=== PATIENT | female | born 1930 | race Caucasian/White ===

== ENCOUNTER 2019-07-14 10:48 | Inpatient (IN) | payer MEDICARE, BC, MEDICAID ==
[2019-07-14] MEDS ORDERED: Potassium Chloride 10 MEQ in Premix Bag 1 BAG IV ONE (12:05)
--- NOTE | 2019-07-14 12:20 | PCM.HP.2 ---
H&P History of Present Illness - General Date of Service: 07/14/19 Admit Problem/Dx: Admission Diagnosis/Problem Admission Diagnosis/Problem Vomiting Source of Information: Patient, Old Records, Provider - History of Present Illness Initial Comments - Free Text/Narative: Cecelia is an 89 yr old female who presented to [facility] today with 4 day history of abdominal pain, nausea and vomiting but no diarrhea. She has not taken her medications for 4 days. She was able to keep some toast and hot water down this morning. Denies any fevers, chills, cold symptoms, shortness of breath, chest pain, dark urine or increased frequency. No rashes or wounds. No myalgias or arthralgias. Seen by COLBY Medrano, who had labs drawn showed hypokalemia at 2.8, Creatinine elevated 1.1, baseline is 0.7(2018) BUN 67. Lipase 3175, liver functions normal. WBC 7.8, hemoglobin 14.5 Platelets 272. History of colon cancer, with chronic urinary incontinence requiring use of briefs. History cholecystectomy, appendectomy and hysterectomy. History of HTN, Vitamin B12 deficiency, Urinary incontinence, hypothyroid, Diabetes Type 2. Immunizations are up to date. Abdomen Pain Score (Numeric/FACES): 4 - Related Data Allergies/Adverse Reactions: Allergies Allergy/AdvReac Type Severity Reaction Status Date / Time celecoxib [From Celebrex] Allergy Intermediate Hives Verified 09/25/15 11:47 Home Medications: Home Meds Glimepiride [Amaryl] 4 mg PO WITHBREAKFAST 08/21/15 [History] Levothyroxine [Synthroid] 50 mcg PO ACBREAKFAST 08/21/15 [History] amLODIPine Besylate [Norvasc] 2.5 mg PO DAILY 08/21/15 [History] atorvaSTATin [Lipitor] 20 mg PO BEDTIME 08/21/15 [History] Cyanocobalamin (Vitamin B-12) [Vitamin B-12] 1,000 mcg PO DAILY 07/14/19 [ History] metFORMIN HCl [Metformin HCl] 500 mg PO BIDMEALS 07/14/19 [History] Past Medical History - Past Health History Medical/Surgical History: Denies Medical/Surgical History HEENT History: Reports: Cataract, Impaired Vision Cardiovascular History: Reports: High Cholesterol, Hypertension Respiratory History: Reports: None Gastrointestinal History: Reports: Cholelithiasis, Irritable Bowel Syndrome Genitourinary History: Reports: Urinary Incontinence INFORMATION SYSTEMS CONSULTANT History: Reports: Other OB/BYN History: III PARA III Musculoskeletal History: Reports: Arthritis Other Musculoskeletal History: RELATES RIGHT TOTAL HIP, ET HAS PROBLEMS WITH PAIN OF LEFT KNEE Neurological History: Reports: None Psychiatric History: Reports: None Endocrine/Metabolic History: Reports: Diabetes, Type II Hematologic History: Reports: None Immunologic History: Reports: None Oncologic (Cancer) History: Reports: Colon Dermatologic History: Reports: None - Infectious Disease History Infectious Disease History: Reports: Chicken Pox, Measles - Past Surgical History HEENT Surgical History: Reports: Cataract Surgery, Oral Surgery, Tonsillectomy GI Surgical History: Reports: Cholecystectomy, Other (See Below) (Colectomy) Female Surgical History: Reports: Breast Biopsy, Hysterectomy, Salpingo- Oophorectomy, Other (See Below) (Bladder sling) Musculoskeletal Surgical History: Reports: Hip Replacement Social & Family History - Tobacco Use Smoking Status *Q: Never Smoker - Alcohol Use Alcohol Use History: No H&P Review of Systems - Review of Systems: Review Of Systems: Comprehensive ROS is negative, except as noted in HPI. Exam - Exam Exam: See Below - Vital Signs Vital Signs: Last Vital Signs Temp 97.9 F 07/14/19 11:13 Pulse 98 07/14/19 11:13 Resp 16 07/14/19 11:13 BP 118/66 07/14/19 11:13 Pulse Ox 97 07/14/19 11:13 Weight: 112 lb 6 oz - Exam General: Alert, Oriented, Cooperative. No: Mild Distress HEENT: PERRLA, Conjunctiva Clear, EOMI, Nares Patent, Normal Nasal Septum, Posterior Pharynx Clear, TMs Clear, Other (Dry tacky mucus membranes) Neck: Supple, Trachea Midline. No: Lymphadenopathy Lungs: Clear to Auscultation, Normal Respiratory Effort Cardiovascular: Regular Rate, Regular Rhythm GI/Abdominal Exam: Normal Bowel Sounds, Soft, No Distention, Tender (LUQ, guarding but no rebound or rigidity) (Female) Exam: Deferred Rectal (Female) Exam: Deferred Extremities: No Pedal Edema Skin: Warm, Dry, Intact, Other (Dry lips) - Patient Data Lab Results Last 24 hrs: see labs on clinic visit in [facility] Sepsis Event Note - Focused Exam Vital Signs: Vital Signs Temp Pulse Resp BP Pulse Ox 07/14/19 11:13 97.9 F 98 16 118/66 97 Date Exam was Performed: 07/14/19 Time Exam was Performed: 12:12 - Problem List (1) Nausea & vomiting SNOMED Code(s): 07468862 ICD Code: R11.2 - NAUSEA WITH VOMITING, UNSPECIFIED Status: Acute Current Visit: Yes (2) Hypokalemia SNOMED Code(s): 59921723 ICD Code: E87.6 - HYPOKALEMIA Status: Acute Current Visit: Yes (3) Pancreatitis SNOMED Code(s): 07337326 ICD Code: K85.90 - ACUTE PANCREATITIS WITHOUT NECROSIS OR INFECTION, UNSP Status: Acute Current Visit: Yes Problem Details: lipase 3175, normal LFTs & WBCs Qualifiers: Chronicity: acute (4) Hypertension SNOMED Code(s): 42173851 ICD Code: I10 - ESSENTIAL (PRIMARY) HYPERTENSION Status: Chronic Current Visit: Yes (5) Diabetes type 2, controlled SNOMED Code(s): 62098379, 355592505 ICD Code: E11.9 - TYPE 2 DIABETES MELLITUS WITHOUT COMPLICATIONS Status: Chronic Current Visit: Yes Qualifiers: Diabetes mellitus jail insulin use: without jail use Diabetes mellitus complication status: without complication Qualified Code(s): E11.9 - Type 2 diabetes mellitus without complications (6) Vitamin B12 deficiency SNOMED Code(s): 866209473 ICD Code: E53.8 - DEFICIENCY OF OTHER SPECIFIED B GROUP VITAMINS Status: Chronic Current Visit: Yes (7) Urinary incontinence SNOMED Code(s): 949678711 ICD Code: R32 - UNSPECIFIED URINARY INCONTINENCE Status: Chronic Current Visit: Yes (8) Hypothyroid SNOMED Code(s): 54727435 ICD Code: E03.9 - HYPOTHYROIDISM, UNSPECIFIED Status: Chronic Current Visit: Yes (9) History of colon cancer SNOMED Code(s): 794556805 ICD Code: Z85.038 - PERSONAL HISTORY OF MALIGNANT NEOPLASM OF LARGE INTESTINE Status: Chronic Current Visit: Yes Problem List Initiated/Reviewed/Updated: Yes Orders Last 24hrs: Active Orders 24 hr Category Date Time Status Patient Status [ADT] Routine ADT 07/14/19 11:51 Active Antiembolic Devices [RC] .Routine Care 07/14/19 11:38 Active Blood Glucose Check, Bedside [RC] BIDMEALS Care 07/14/19 11:50 Active Central Line Assessment [RC] QSHIFT Care 07/14/19 12:01 Active Oxygen Therapy [RC] PRN Care 07/14/19 11:51 Active Up ad Eddie [RC] ASDIRECTED Care 07/14/19 11:50 Active VTE/DVT Education [RC] Per Unit Routine Care 07/14/19 11:51 Active Vital Signs [RC] Q4H Care 07/14/19 11:51 Active Clear Liquid Diet [DIET] Diet 07/14/19 Lunch Active BASIC METABOLIC PANEL,BMP [CHEM] Routine Lab 07/15/19 06:00 Ordered MAGNESIUM [CHEM] Routine Lab 07/14/19 10:03 Received UA W/MICROSCOPIC [URIN] Routine Lab 07/14/19 11:50 Ordered Acetaminophen [Tylenol] Med 07/14/19 11:50 Active 650 mg PO Q4H PRN Cyanocobalamin (Vitamin B12) [Vitamin B12] Med 07/15/19 09:00 Active 1,000 mcg PO DAILY Glimepiride Med 07/15/19 08:00 Active 4 mg PO WITHBREAKFAST Levothyroxine [Synthroid] Med 07/15/19 06:00 Active 50 mcg PO DAILY@0600 Ondansetron [Zofran ODT] Med 07/14/19 11:50 Active 4 mg PO Q6H PRN Potassium Chloride [KCl 10 MEQ in Water 100 ML] 10 meq Med 07/14/19 13:00 Active Premix Bag 1 bag IV Q1H Sodium Chloride 0.9% [Normal Saline] 1,000 ml Med 07/14/19 12:00 Active IV ASDIRECTED amLODIPine [Norvasc] Med 07/15/19 09:00 Active 2.5 mg PO DAILY atorvaSTATin [Lipitor] Med 07/14/19 21:00 Active 20 mg PO BEDTIME metFORMIN [Glucophage] Med 07/15/19 09:00 Active 500 mg PO BIDMEALS Antiembolic Hose [OM.PC] Routine Oth 07/14/19 11:38 Ordered Resuscitation Status Routine Resus Stat 07/14/19 11:50 Ordered Medication Orders Acetaminophen (Tylenol) 650 mg PO Q4H PRN PRN Reason: Pain (Mild 1-3)/fever Amlodipine Besylate (Norvasc) 2.5 mg PO DAILY [facility] Atorvastatin Calcium (Lipitor) 20 mg PO BEDTIME [facility] Cyanocobalamin (Vitamin B12) 1,000 mcg PO DAILY JOHNNIE Glimepiride (Glimepiride) 4 mg PO WITHBREAKFAST [facility] Sodium Chloride (Normal Saline) 1,000 mls @ 100 mls/hr IV ASDIRECTED [facility] Potassium Chloride 10 meq/ (Premix) 100 mls @ 100 mls/hr IV Q1H JOHNNIE Stop: 07/14/19 15:59 Levothyroxine Sodium (Synthroid) 50 mcg PO DAILY@0600 [facility] Metformin HCl (Glucophage) 500 mg PO BIDMEALS [facility] Ondansetron HCl (Zofran Odt) 4 mg PO Q6H PRN PRN Reason: nausea, able to take PO Assessment/Plan Comment:: 1. Direct admission from clinic for IV fluids, potassium replacement and monitoring. 2. Port accessible, IVF at 100 ml/hr, KCL 30 mEq over 3 hours, repeat labs tomorrow. 3. Repeat lipase tomorrow, clear liquid diet, will advance as tolerated. 4. Accuchecks BID, Regular diet. 5. DVT: TEDs BLE. Ambulation ad eddie. 6. CODE STATUS: DNR/DNI - Mortality Measure Prognosis:: Poor
[2019-07-14] MEDS: Sodium Chloride 0.9% 1,000 ML IV SCH (12:31)
[2019-07-14] MEDS: Potassium Chloride 10 MEQ in Premix Bag 1 BAG IV SCH ×3 (12:32→15:14)
[2019-07-14] MEDS ORDERED: Potassium Chloride 10 MEQ in Premix Bag 3 BAG IV SCH (13:00)
[2019-07-14] MEDS: Acetaminophen 325 MG Tab PO PRN (16:23)
[2019-07-14] MEDS: Ondansetron 4 MG Tab.DIS PO PRN (18:52)
[2019-07-14] MEDS: atorvaSTATin 20 MG Tab PO SCH (20:44)
[2019-07-15] MEDS: Sodium Chloride 0.9% 1,000 ML IV SCH ×2 (01:39→11:33)
[2019-07-15] MEDS: Acetaminophen 325 MG Tab PO PRN (05:29)
[2019-07-15] MEDS: Levothyroxine 50 MCG Tab PO SCH (05:30)
[2019-07-15] MEDS: Glimepiride 4 MG Tab PO SCH (10:00)
[2019-07-15] MEDS: metFORMIN 500 MG Tab PO SCH (10:00)
[2019-07-15] MEDS: amLODIPine 2.5 MG Tab PO SCH (10:01)
[2019-07-15] MEDS: Cyanocobalamin (Vitamin B12) 1,000 MCG Tab PO SCH (10:01)
[2019-07-15] MEDS ORDERED: Diatrizoate Meglumine/Diatrizoate Sodium 37% 30 ML Bottle PO ONE (13:05)
[2019-07-15] MEDS ORDERED: Iopamidol 755 Mg/ML 100 ML Bottle IV ONE (13:05)
[2019-07-15] MEDS ORDERED: cefTRIAXone 1 GM in Sodium Chloride 0.9% 50 ML IV SCH (15:00)
--- NOTE | 2019-07-15 15:09 | PCM.PN ---
- General Info Date of Service: 07/15/19 Admission Dx/Problem (Free Text): Patient having more LUQ pain, no appetite. No vomiting since admission. No fevers or chills. - Patient Data Vitals - Most Recent: Last Vital Signs Temp 98.1 F 07/15/19 11:39 Pulse 82 07/15/19 11:39 Resp 14 07/15/19 11:39 BP 141/73 H 07/15/19 11:39 Pulse Ox 97 07/15/19 11:39 Weight - Most Recent: 112 lb 6 oz I&O - Last 24 Hours: Intake & Output 07/14/19 07/15/19 07/15/19 22:59 06:59 14:59 Intake Total 1009 712 Balance 1009 712 Lab Results Last 24 Hours: Laboratory Results - last 24 hr 07/14/19 07/14/19 07/15/19 Range/Units 15:00 17:33 06:12 Sodium (135-145) mmol/L Potassium (3.5-5.3) mmol/L Chloride (100-110) mmol/L Carbon Dioxide (21-32) mmol/L BUN (7-18) mg/dL Creatinine (0.55-1.02) mg/dL Est Cr Clr Drug Dosing mL/min Estimated GFR (MDRD) (>60) BUN/Creatinine Ratio (9-20) Glucose (80-116) mg/dL POC Glucose 101 131 H (80-116) mg/dL Calcium (8.6-10.2) mg/dL Lipase (73-393) U/L Urine Color Yellow (YELLOW) Urine Appearance Cloudy (CLEAR) Urine pH 5.0 (5.0-6.5) Ur Specific Lorraine 1.020 (1.010-1.025) Urine Protein Trace (NEGATIVE) mg/dL Urine Glucose (UA) Normal (NORMAL) mg/dL Urine Ketones 15 H (NEGATIVE) mg/dL Urine Occult Blood Negative (NEGATIVE) Urine Nitrite Negative (NEGATIVE) Urine Bilirubin Small H (NEGATIVE) Urine Urobilinogen 1 H (NEGATIVE) mg/dL Ur Leukocyte Esterase Moderate H (NEGATIVE) Urine RBC 0-5 (0-5) Urine WBC 5-10 H (0-5) Ur Squamous Epith Cells Few H (NS,R,O) Urine Bacteria Many H (NS) 07/15/19 07/15/19 Range/Units 06:40 06:40 Sodium 136 (135-145) mmol/L Potassium 3.1 L (3.5-5.3) mmol/L Chloride 96 L D (100-110) mmol/L Carbon Dioxide 31 (21-32) mmol/L BUN 44 H D (7-18) mg/dL Creatinine 0.8 (0.55-1.02) mg/dL Est Cr Clr Drug Dosing 37.71 mL/min Estimated GFR (MDRD) > 60 (>60) BUN/Creatinine Ratio 55.0 H (9-20) Glucose 134 H (80-116) mg/dL POC Glucose (80-116) mg/dL Calcium 8.6 (8.6-10.2) mg/dL Lipase 4545 H (73-393) U/L Urine Color (YELLOW) Urine Appearance (CLEAR) Urine pH (5.0-6.5) Ur Specific Lorraine (1.010-1.025) Urine Protein (NEGATIVE) mg/dL Urine Glucose (UA) (NORMAL) mg/dL Urine Ketones (NEGATIVE) mg/dL Urine Occult Blood (NEGATIVE) Urine Nitrite (NEGATIVE) Urine Bilirubin (NEGATIVE) Urine Urobilinogen (NEGATIVE) mg/dL Ur Leukocyte Esterase (NEGATIVE) Urine RBC (0-5) Urine WBC (0-5) Ur Squamous Epith Cells (NS,R,O) Urine Bacteria (NS) Medhat Results Last 24 Hours: Microbiology 07/14/19 15:00 Urine Culture - Preliminary Urine, Voided Gram Negative Rods Med Orders - Current: Current Medications Acetaminophen (Tylenol) 650 mg PO Q4H PRN PRN Reason: Pain (Mild 1-3)/fever Last Admin: 07/15/19 05:29 Dose: 650 mg Amlodipine Besylate (Norvasc) 2.5 mg PO DAILY [facility] Last Admin: 07/15/19 10:01 Dose: Not Given Atorvastatin Calcium (Lipitor) 20 mg PO BEDTIME [facility] Last Admin: 07/14/19 20:44 Dose: 20 mg Cyanocobalamin (Vitamin B12) 1,000 mcg PO DAILY [facility] Last Admin: 07/15/19 10:01 Dose: Not Given Glimepiride (Glimepiride) 4 mg PO WITHBREAKFAST [facility] Last Admin: 07/15/19 10:00 Dose: Not Given Heparin Sodium (Porcine) (Heparin Lock Flush 100 Units/Ml) 500 units FLUSH ASDIRECTED PRN PRN Reason: LINE PATENCY Sodium Chloride (Normal Saline) 1,000 mls @ 100 mls/hr IV ASDIRECTED [facility] Last Admin: 07/15/19 11:33 Dose: 100 mls/hr Ceftriaxone Sodium 1 gm/ (Sodium Chloride) 50 mls @ 200 mls/hr IV Q24H [facility] Levothyroxine Sodium (Synthroid) 50 mcg PO DAILY@0600 [facility] Last Admin: 07/15/19 05:30 Dose: 50 mcg Metformin HCl (Glucophage) 500 mg PO BIDMEALS [facility] Last Admin: 07/15/19 10:00 Dose: Not Given Ondansetron HCl (Zofran Odt) 4 mg PO Q6H PRN PRN Reason: nausea, able to take PO Last Admin: 07/14/19 18:52 Dose: 4 mg Discontinued Medications Diatrizoate Meglum/Diatrizoate Sod (Gastrografin 37%) 30 ml PO . DIRECTED ONE Stop: 07/15/19 13:06 Last Admin: 07/15/19 13:20 Dose: 30 ml Potassium Chloride 10 meq/ (Premix) 100 mls @ 100 mls/hr IV ONETIME ONE Stop: 07/14/19 13:04 Last Admin: 07/14/19 12:30 Dose: Not Given Potassium Chloride 10 meq/ (Premix) 100 mls @ 100 mls/hr IV Q1H [facility] Potassium Chloride 10 meq/ (Premix) 100 mls @ 100 mls/hr IV Q1H [facility] Stop: 07/14/19 15:59 Last Admin: 07/14/19 15:14 Dose: 100 mls/hr Iopamidol (Isovue-370 (76%)) 100 ml IV . DIRECTED ONE Stop: 07/15/19 13:06 Last Admin: 07/15/19 13:20 Dose: 58 ml - Exam General: Alert, Oriented, Cooperative, No Acute Distress Lungs: Clear to Auscultation, Normal Respiratory Effort Cardiovascular: Regular Rate, Regular Rhythm GI/Abdominal Exam: Normal Bowel Sounds (also present in ventral hernia, no ecchymosis), Soft, No Distention, Guarding, Tender (LUQ, ventral hernia reducible). No: Rigid, Rebound Extremities: No Pedal Edema Sepsis Event Note - Evaluation Sepsis Screening Result: No Definite Risk - Focused Exam Vital Signs: Vital Signs Temp Pulse Resp BP Pulse Ox Pulse Ox 07/15/19 11:39 98.1 F 82 14 141/73 H 97 07/15/19 11:27 94 L 07/15/19 08:00 99.2 F 91 14 119/62 94 L 07/15/19 04:00 98.9 F 88 18 138/71 95 Date Exam was Performed: 07/15/19 Time Exam was Performed: 14:57 - Problem List & Annotations (1) Partial obstruction of small intestine SNOMED Code(s): 755160928 Code(s): K56.600 - PARTIAL INTESTINAL OBSTRUCTION, UNSPECIFIED TO CAUSE Status: Acute Current Visit: Yes (2) UTI (urinary tract infection) SNOMED Code(s): 75292862 Code(s): N39.0 - URINARY TRACT INFECTION, SITE NOT SPECIFIED Status: Acute Current Visit: Yes (3) Nausea & vomiting SNOMED Code(s): 34943177 Code(s): R11.2 - NAUSEA WITH VOMITING, UNSPECIFIED Status: Acute Current Visit: Yes (4) Hypokalemia SNOMED Code(s): 20907336 Code(s): E87.6 - HYPOKALEMIA Status: Acute Current Visit: Yes (5) Pancreatitis SNOMED Code(s): 02377687 Code(s): K85.90 - ACUTE PANCREATITIS WITHOUT NECROSIS OR INFECTION, UNSP Status: Ruled-out Current Visit: Yes Qualifiers: Chronicity: acute Annotation/Comment:: lipase 4545, normal LFTs & WBCs, will get CT abdomen & pelvis today. (6) Hypertension SNOMED Code(s): 04371633 Code(s): I10 - ESSENTIAL (PRIMARY) HYPERTENSION Status: Chronic Current Visit: Yes (7) Diabetes type 2, controlled SNOMED Code(s): 97217954, 466311225 Code(s): E11.9 - TYPE 2 DIABETES MELLITUS WITHOUT COMPLICATIONS Status: Chronic Current Visit: Yes Qualifiers: Diabetes mellitus termite inspector insulin use: without chcf use Diabetes mellitus complication status: without complication Qualified Code(s): E11.9 - Type 2 diabetes mellitus without complications (8) Vitamin B12 deficiency SNOMED Code(s): 677596793 Code(s): E53.8 - DEFICIENCY OF OTHER SPECIFIED B GROUP VITAMINS Status: Chronic Current Visit: Yes (9) Urinary incontinence SNOMED Code(s): 261707856 Code(s): R32 - UNSPECIFIED URINARY INCONTINENCE Status: Chronic Current Visit: Yes (10) Hypothyroid SNOMED Code(s): 65577018 Code(s): E03.9 - HYPOTHYROIDISM, UNSPECIFIED Status: Chronic Current Visit: Yes (11) History of colon cancer SNOMED Code(s): 958132268 Code(s): Z85.038 - PERSONAL HISTORY OF MALIGNANT NEOPLASM OF LARGE INTESTINE Status: Chronic Current Visit: Yes - Problem List Review Problem List Initiated/Reviewed/Updated: Yes - My Orders Last 24 Hours: My Active Orders 07/14/19 15:00 CULTURE URINE [RM] Routine 07/14/19 16:20 Patient Status [ADT] Routine 07/14/19 21:00 atorvaSTATin [Lipitor] 20 mg PO BEDTIME 07/15/19 06:00 Levothyroxine [Synthroid] 50 mcg PO DAILY@0600 07/15/19 08:00 Glimepiride 4 mg PO WITHBREAKFAST 07/15/19 09:00 Cyanocobalamin (Vitamin B12) [Vitamin B12] 1,000 mcg PO DAILY amLODIPine [Norvasc] 2.5 mg PO DAILY metFORMIN [Glucophage] 500 mg PO BIDMEALS 07/15/19 10:09 Abdomen Pelvis w Cont [CT] Routine 07/15/19 15:00 cefTRIAXone [Rocephin] 1 gm Sodium Chloride 0.9% [Normal Saline] 50 ml IV Q24H 07/15/19 Lunch NPO [Nothing Per Oral Diet] [DIET] 07/16/19 06:00 BASIC METABOLIC PANEL,BMP [CHEM] Routine CBC WITH AUTO DIFF [HEME] Routine LIPASE [CHEM] Routine - Plan Plan:: 1. CT abdomen/pelvis with contrast this morning, Lipase elevated to 4545. 2. Port accessible, IVF at 100 ml/hr, KCL 30 mEq over 3 hours repeat, K up to 3.1, repeat labs tomorrow. 3. Repeat lipase tomorrow, NPO with ice chips. 4. UC: >100,000 Gram negative rods, started Rocephin 1 g IV q24h. 5. DVT: TEDs BLE. Ambulation ad eddie. 6. CODE STATUS: DNR/DNI CT abdomen/pelvis: showed no pancreatitis but did show possible or partial bowel obstruction in the ventral hernia(report called by Dr Young at 1432). Discussed with patient, she is more tender over hernia now than this morning when rounded, no ecchymosis, bowel sounds present, reducible. Called Dr Stevenson, surgeon application support intern.
--- NOTE | 2019-07-15 15:33 | CT ---
INDICATION: Left upper quadrant pain. Elevated lipase. CT ABDOMEN/PELVIS WITH CONTRAST: Spiral 3.75 mm axial sections were obtained through the abdomen and pelvis with oral and IV contrast (58 mL Isovue-370 at 1.1 cc/second) injected through a port. Sagittal and coronal reconstructions were obtained 07/15/19 - no comparisons. Total exam DLP was 390.82 mGy-cm. Lower lung hernandez and pleural spaces visualized showed no acute abnormalities. The heart is normal in size. No pericardial effusion was seen. The liver appeared normal without evidence of metastatic disease. No retroperitoneal mass was seen. The pancreas, spleen, kidneys and adrenals were essentially normal with a few tiny low-density lesions in the kidneys, compatible with tiny cysts. The appendix, gallbladder, and uterus are absent compatible with surgical removal. There is evidence of a colon resection in the rectosigmoid area. In the left lower quadrant - left upper pelvis anterolaterally, there is a moderately large hernia measuring 82 x 35 mm (transverse x anterior posterior) diameter with a loop of dilated what appears to be small bowel within it. A dilated loop extends into the hernia sac and there is suggestion of a decompressed loop extending from the hernia sac more medially. This is not well defined but is suspicious for an obstructive process at the level of the hernia. Markedly dilated loops of small bowel are noted up to 4.6 cm and are numerous up to this level. Air-fluid levels are seen in these dilated loops of small bowel compatible with a mechanically obstructive process, either early or partial since there is gas and stool in the colon, which is decompressed. No evidence of free air was identified. No free fluid collections were seen. No evidence of pancreatitis was identified. Calcifications are noted in the aorta, splenic, iliac and femoral arteries. IMPRESSION: 1. 8 cm hernia with 33 mm mouth and question of obstruction of a loop of small bowel in that hernia producing a partially obstructive or early mechanical obstruction of the distal small bowel in the left lower quadrant hernia. This should be correlated clinically. 2. ASD. 3. Minimal cystic changes in the kidneys. 4. Post appendectomy, cholecystectomy, hysterectomy, oophorectomy, total hip replacement on the right. 5. Mild dextroconcave scoliosis lumbar spine. Report was called to Dr. Crews at [address] [facility]
[2019-07-15] MEDS: cefTRIAXone 1 GM Vial IVPUSH SCH (15:41)
[2019-07-15] MEDS: Potassium Chloride 10 MEQ in Premix Bag 1 BAG IV SCH ×3 (15:57→18:35)
--- NOTE | 2019-07-15 18:34 | CONS ---
DATE OF CONSULTATION: 07/15/2019 HISTORY: This 89-year-old female seen at the request of Dr. Crews for evaluation of her abdomen. She was admitted yesterday with a 4-day history of abdominal pain, nausea, and vomiting. She was found to be low potassium in the clinic and admitted. Lipase was also elevated and remains so. She has a history of many previous surgeries including cholecystectomy, appendectomy, and hysterectomy. A CT scan of the abdomen was obtained today. I have reviewed the report and the films. She does have a long-standing hernia that has been present at least for 30 years and has never been bothersome to her. There is bowel dilatation and there seems to be a transition point near the hernia. The patient has not had any emesis since yesterday and does not complain of any nausea at this point. PAST MEDICAL HISTORY: Reviewed. MEDICATIONS: Reviewed. MEDICAL ALLERGIES: Reviewed. REVIEW OF SYSTEMS: Patient denies chest pain, shortness of breath, or respiratory difficulties. Denies fever, sweats, or chills. Has not had a bowel movement since being in the hospital. She denies any abdominal pain at this time. PHYSICAL EXAMINATION: GENERAL: Reveals a pleasant elderly lady, in no acute distress. She is resting comfortably. VITALS: Were reviewed and within normal limits. ABDOMEN: Distended, soft, and nontender. She does have a palpable hernia in the left periumbilical region that is completely soft and nontender. I am able to hear bowel sounds in it, but again there is no tenderness. I do not palpate any other hernias or masses. ASSESSMENT: 1. Recent nausea and vomiting, resolved. 2. Abdominal wall hernia. PLAN: Findings reviewed with the patient, and since she is not having any symptoms from this currently, I would recommend observation. This is a chronic large-mouth hernia and she does not have any evidence of incarceration or strangulation today that would warrant surgery. I would recommend conservative measures at this point. I will follow peripherally while hospitalized. /[id number] 1824 MARY/LIN
[2019-07-15] MEDS: atorvaSTATin 20 MG Tab PO SCH (20:17)
[2019-07-16] MEDS: Sodium Chloride 0.9% 1,000 ML IV SCH (01:00)
[2019-07-16] MEDS ORDERED: 50% Dextrose in Water 50 ML Syringe ONE (05:54)
[2019-07-16] MEDS ORDERED: 50% Dextrose in Water 50 ML Syringe IVPUSH ONE (05:55)
[2019-07-16] MEDS ORDERED: Dextrose 5%-0.9% NaCl 1,000 ML IV SCH (06:00)
[2019-07-16] MEDS: Levothyroxine 50 MCG Tab PO SCH (06:36)
[2019-07-16] MEDS: Sodium Chloride 0.9% 10 ML Syringe FLUSH PRN ×2 (11:30→16:20)
[2019-07-16] MEDS: Potassium Chloride 20 MEQ Tab.ER PO SCH ×2 (11:34→20:09)
[2019-07-16] MEDS: Cyanocobalamin (Vitamin B12) 1,000 MCG Tab PO SCH (11:34)
[2019-07-16] MEDS: amLODIPine 2.5 MG Tab PO SCH (11:35)
[2019-07-16] MEDS: Glimepiride 4 MG Tab PO SCH (12:07)
--- NOTE | 2019-07-16 12:12 | PCM.PN ---
- General Info Date of Service: 07/16/19 Admission Dx/Problem (Free Text): The patient states she feels much better. She denies any abdominal pain, nausea , vomiting or fevers. She still hasn't passed any gas or have a BM. - Patient Data Vitals - Most Recent: Last Vital Signs Temp 97.4 F 07/16/19 11:35 Pulse 80 07/16/19 11:35 Resp 16 07/16/19 11:35 BP 114/62 07/16/19 11:35 Pulse Ox 97 07/16/19 11:35 Weight - Most Recent: 112 lb 6 oz I&O - Last 24 Hours: Intake & Output 07/15/19 07/16/19 07/16/19 22:59 06:59 14:59 Intake Total 740 923 560 Output Total 600 Balance 140 923 560 Lab Results Last 24 Hours: Laboratory Results - last 24 hr 07/15/19 07/16/19 07/16/19 Range/Units 17:16 05:49 06:29 WBC (4.5-12.0) X10-3/uL RBC (3.23-5.20) x10(6)uL Hgb (11.5-15.5) g/dL Hct (30.0-51.3) % MCV (80-96) fL MCH (27.7-33.6) pg MCHC (32.2-35.4) g/dL RDW (11.5-15.5) % Plt Count (125-369) X10(3)uL MPV (7.4-10.4) fL Add Manual Diff Neutrophils % (Manual) (46-82) % Band Neutrophils % (0-6) % Lymphocytes % (Manual) (13-37) % Monocytes % (Manual) (4-12) % Sodium (135-145) mmol/L Potassium (3.5-5.3) mmol/L Chloride (100-110) mmol/L Carbon Dioxide (21-32) mmol/L BUN (7-18) mg/dL Creatinine (0.55-1.02) mg/dL Est Cr Clr Drug Dosing mL/min Estimated GFR (MDRD) (>60) BUN/Creatinine Ratio (9-20) Glucose (80-116) mg/dL POC Glucose 90 54 L 208 H D (80-116) mg/dL Calcium (8.6-10.2) mg/dL Lipase (73-393) U/L 07/16/19 07/16/19 07/16/19 Range/Units 06:55 06:55 06:55 WBC 7.9 (4.5-12.0) X10-3/uL RBC 3.76 (3.23-5.20) x10(6)uL Hgb 12.1 (11.5-15.5) g/dL Hct 36.0 (30.0-51.3) % MCV 95.6 (80-96) fL MCH 32.2 (27.7-33.6) pg MCHC 33.7 (32.2-35.4) g/dL RDW 12.0 (11.5-15.5) % Plt Count 230 (125-369) X10(3)uL MPV 7.9 (7.4-10.4) fL Add Manual Diff Yes Neutrophils % (Manual) 88 H (46-82) % Band Neutrophils % 1 (0-6) % Lymphocytes % (Manual) 8 L (13-37) % Monocytes % (Manual) 3 L (4-12) % Sodium 138 (135-145) mmol/L Potassium 2.9 L (3.5-5.3) mmol/L Chloride 100 (100-110) mmol/L Carbon Dioxide 26 (21-32) mmol/L BUN 21 H D (7-18) mg/dL Creatinine 0.6 (0.55-1.02) mg/dL Est Cr Clr Drug Dosing 50.27 mL/min Estimated GFR (MDRD) > 60 (>60) BUN/Creatinine Ratio 35.0 H (9-20) Glucose 192 H (80-116) mg/dL POC Glucose (80-116) mg/dL Calcium 7.8 L (8.6-10.2) mg/dL Lipase 1354 H (73-393) U/L [place] Results Last 24 Hours: Microbiology 07/14/19 15:00 Urine Culture - Preliminary Urine, Voided Gram Negative Rods Med Orders - Current: Current Medications Acetaminophen (Tylenol) 650 mg PO Q4H PRN PRN Reason: Pain (Mild 1-3)/fever Last Admin: 07/15/19 05:29 Dose: 650 mg Amlodipine Besylate (Norvasc) 2.5 mg PO DAILY [facility] Last Admin: 07/16/19 11:35 Dose: 2.5 mg Atorvastatin Calcium (Lipitor) 20 mg PO BEDTIME [facility] Last Admin: 07/15/19 20:17 Dose: Not Given Ceftriaxone Sodium (Rocephin) 1 gm IVPUSH Q24H [facility] Last Admin: 07/15/19 15:41 Dose: 1 gm Cyanocobalamin (Vitamin B12) 1,000 mcg PO DAILY [facility] Last Admin: 07/16/19 11:34 Dose: 1,000 mcg Heparin Sodium (Porcine) (Heparin Lock Flush 100 Units/Ml) 500 units FLUSH ASDIRECTED PRN PRN Reason: LINE PATENCY Last Admin: 07/16/19 12:00 Dose: 500 units Levothyroxine Sodium (Synthroid) 50 mcg PO DAILY@0600 [facility] Last Admin: 07/16/19 06:36 Dose: Not Given Metformin HCl (Glucophage) 500 mg PO BIDMEALS [facility] Last Admin: 07/15/19 10:00 Dose: Not Given Ondansetron HCl (Zofran Odt) 4 mg PO Q6H PRN PRN Reason: nausea, able to take PO Last Admin: 07/14/19 18:52 Dose: 4 mg Potassium Chloride (Klor-Con M20) 20 meq PO BID [facility] Last Admin: 07/16/19 11:34 Dose: 20 meq Sodium Chloride (Saline Flush) 10 ml FLUSH ASDIRECTED PRN PRN Reason: flush med Discontinued Medications Dextrose/Water (Dextrose 50% In Water) Confirm Administered Dose 50 ml .ROUTE .STK-MED ONE Stop: 07/16/19 05:55 Last Admin: 07/16/19 06:09 Dose: Not Given Dextrose/Water (Dextrose 50% In Water) 50 ml IVPUSH ONETIME ONE Stop: 07/16/19 05:56 Last Admin: 07/16/19 05:50 Dose: 50 ml Diatrizoate Meglum/Diatrizoate Sod (Gastrografin 37%) 30 ml PO . DIRECTED ONE Stop: 07/15/19 13:06 Last Admin: 07/15/19 13:20 Dose: 30 ml Glimepiride (Glimepiride) 4 mg PO WITHBREAKFAST [facility] Last Admin: 07/16/19 12:07 Dose: Not Given Sodium Chloride (Normal Saline) 1,000 mls @ 100 mls/hr IV ASDIRECTED [facility] Last Admin: 07/16/19 01:00 Dose: 100 mls/hr Potassium Chloride 10 meq/ (Premix) 100 mls @ 100 mls/hr IV ONETIME ONE Stop: 07/14/19 13:04 Last Admin: 07/14/19 12:30 Dose: Not Given Potassium Chloride 10 meq/ (Premix) 100 mls @ 100 mls/hr IV Q1H [facility] Potassium Chloride 10 meq/ (Premix) 100 mls @ 100 mls/hr IV Q1H [facility] Stop: 07/14/19 15:59 Last Admin: 07/14/19 15:14 Dose: 100 mls/hr Potassium Chloride 10 meq/ (Premix) 100 mls @ 100 mls/hr IV Q1H [facility] Stop: 07/15/19 18:59 Last Admin: 07/15/19 18:35 Dose: 100 mls/hr Dextrose/Sodium Chloride (Dextrose 5%-Normal Saline) 1,000 mls @ 100 mls/hr IV ASDIRECTED [facility] Last Admin: 07/16/19 05:50 Dose: 100 mls/hr Iopamidol (Isovue-370 (76%)) 100 ml IV . DIRECTED ONE Stop: 07/15/19 13:06 Last Admin: 07/15/19 13:20 Dose: 58 ml - Exam General: Alert, Oriented GI/Abdominal Exam: Normal Bowel Sounds, Non-Tender, No Distention, No Mass, Hernia Sepsis Event Note - Evaluation Sepsis Screening Result: No Definite Risk - Focused Exam Vital Signs: Vital Signs Temp Pulse Resp BP BP BP Pulse Ox 07/16/19 11:35 97.4 F 80 16 121/60 114/62 97 07/16/19 09:30 98.3 F 85 18 121/60 96 07/16/19 03:40 99.8 F 87 17 123/57 L 93 L Date Exam was Performed: 07/16/19 Time Exam was Performed: 12:09 - Problem List & Annotations (1) Hypokalemia SNOMED Code(s): 70913871 Code(s): E87.6 - HYPOKALEMIA Status: Acute Current Visit: Yes (2) Nausea & vomiting SNOMED Code(s): 46065338 Code(s): R11.2 - NAUSEA WITH VOMITING, UNSPECIFIED Status: Acute Current Visit: Yes (3) Partial obstruction of small intestine SNOMED Code(s): 707248828 Code(s): K56.600 - PARTIAL INTESTINAL OBSTRUCTION, UNSPECIFIED TO CAUSE Status: Acute Current Visit: Yes (4) Diabetes type 2, controlled SNOMED Code(s): 16240009, 536186962 Code(s): E11.9 - TYPE 2 DIABETES MELLITUS WITHOUT COMPLICATIONS Status: Chronic Current Visit: Yes Qualifiers: Diabetes mellitus exterminator helper insulin use: without exterminator helper use Diabetes mellitus complication status: without complication Qualified Code(s): E11.9 - Type 2 diabetes mellitus without complications (5) Pancreatitis SNOMED Code(s): 64042506 Code(s): K85.90 - ACUTE PANCREATITIS WITHOUT NECROSIS OR INFECTION, UNSP Status: Ruled-out Current Visit: Yes Qualifiers: Chronicity: acute Annotation/Comment:: lipase 4545, normal LFTs & WBCs, will get CT abdomen & pelvis today. (6) UTI (urinary tract infection) SNOMED Code(s): 48619381 Code(s): N39.0 - URINARY TRACT INFECTION, SITE NOT SPECIFIED Status: Acute Current Visit: Yes (7) Palliative care status SNOMED Code(s): 069189961 Code(s): Z51.5 - ENCOUNTER FOR PALLIATIVE CARE Status: Acute Current Visit: Yes - Problem List Review Problem List Initiated/Reviewed/Updated: Yes - My Orders Last 24 Hours: My Active Orders 07/16/19 09:18 Ambulate [RC] ASDIRECTED Convert IV to Saline Lock [OM.PC] Routine 07/16/19 10:00 Potassium Chloride [Klor-Con M20] 20 meq PO BID 07/16/19 11:25 Sodium Chloride 0.9% [Saline Flush] 10 ml FLUSH ASDIRECTED PRN 07/16/19 Lunch Clear Liquid Diet [DIET] 07/17/19 06:00 BASIC METABOLIC PANEL,BMP [CHEM] AM - Plan Plan:: 1. Review Dr. Pettit note. 2. Ambulate 3. Start clear liquids 4. DC IV fluids and saline lock IV. 5. Stop the Amaryl until she is eating regular food. 6. Recheck amylase in a.m. 7. By mouth potassium and recheck electrolytes appear
[2019-07-16] MEDS: cefTRIAXone 1 GM Vial IVPUSH SCH (16:20)
[2019-07-16] MEDS: atorvaSTATin 20 MG Tab PO SCH (20:10)
[2019-07-17] MEDS: Levothyroxine 50 MCG Tab PO SCH (05:13)
--- NOTE | 2019-07-17 08:29 | PCM.PN ---
- General Info Date of Service: 07/17/19 Admission Dx/Problem (Free Text): Patient is doing well. She had a BM she states. She has no abdominal pain, nausea or vomiting. She is currently on full liquids and tolerating it. - Patient Data Vitals - Most Recent: Last Vital Signs Temp 98.4 F 07/17/19 04:00 Pulse 67 07/17/19 04:00 Resp 17 07/17/19 04:00 BP 130/64 07/17/19 04:00 Pulse Ox 96 07/17/19 04:00 Weight - Most Recent: 112 lb 6 oz Lab Results Last 24 Hours: Laboratory Results - last 24 hr 07/16/19 07/16/19 07/16/19 Range/Units 06:29 06:55 17:28 Neutrophils % (Manual) 88 H (46-82) % Band Neutrophils % 1 (0-6) % Lymphocytes % (Manual) 8 L (13-37) % Monocytes % (Manual) 3 L (4-12) % Sodium (135-145) mmol/L Potassium (3.5-5.3) mmol/L Chloride (100-110) mmol/L Carbon Dioxide (21-32) mmol/L BUN (7-18) mg/dL Creatinine (0.55-1.02) mg/dL Est Cr Clr Drug Dosing mL/min Estimated GFR (MDRD) (>60) BUN/Creatinine Ratio (9-20) Glucose (80-116) mg/dL POC Glucose 208 H D 192 H (80-116) mg/dL Calcium (8.6-10.2) mg/dL Lipase (73-393) U/L 07/17/19 07/17/19 07/17/19 Range/Units 05:15 06:30 06:30 Neutrophils % (Manual) (46-82) % Band Neutrophils % (0-6) % Lymphocytes % (Manual) (13-37) % Monocytes % (Manual) (4-12) % Sodium 140 (135-145) mmol/L Potassium 3.4 L (3.5-5.3) mmol/L Chloride 105 D (100-110) mmol/L Carbon Dioxide 28 (21-32) mmol/L BUN 10 D (7-18) mg/dL Creatinine 0.6 (0.55-1.02) mg/dL Est Cr Clr Drug Dosing 50.27 mL/min Estimated GFR (MDRD) > 60 (>60) BUN/Creatinine Ratio 16.7 (9-20) Glucose 138 H (80-116) mg/dL POC Glucose 145 H (80-116) mg/dL Calcium 7.8 L (8.6-10.2) mg/dL Lipase 834 H (73-393) U/L [place] Results Last 24 Hours: Microbiology 07/14/19 15:00 Urine Culture - Final Urine, Voided Escherichia Coli Med Orders - Current: Current Medications Acetaminophen (Tylenol) 650 mg PO Q4H PRN PRN Reason: Pain (Mild 1-3)/fever Last Admin: 07/15/19 05:29 Dose: 650 mg Amlodipine Besylate (Norvasc) 2.5 mg PO DAILY [facility] Last Admin: 07/16/19 11:35 Dose: 2.5 mg Atorvastatin Calcium (Lipitor) 20 mg PO BEDTIME [facility] Last Admin: 07/16/19 20:10 Dose: 20 mg Ceftriaxone Sodium (Rocephin) 1 gm IVPUSH Q24H [facility] Last Admin: 07/16/19 16:20 Dose: 1 gm Cyanocobalamin (Vitamin B12) 1,000 mcg PO DAILY [facility] Last Admin: 07/16/19 11:34 Dose: 1,000 mcg Heparin Sodium (Porcine) (Heparin Lock Flush 100 Units/Ml) 500 units FLUSH ASDIRECTED PRN PRN Reason: LINE PATENCY Last Admin: 07/16/19 16:28 Dose: 500 units Levothyroxine Sodium (Synthroid) 50 mcg PO DAILY@0600 [facility] Last Admin: 07/17/19 05:13 Dose: 50 mcg Metformin HCl (Glucophage) 500 mg PO BIDMEALS [facility] Last Admin: 07/15/19 10:00 Dose: Not Given Ondansetron HCl (Zofran Odt) 4 mg PO Q6H PRN PRN Reason: nausea, able to take PO Last Admin: 07/14/19 18:52 Dose: 4 mg Potassium Chloride (Klor-Con M20) 20 meq PO DAILY [facility] Sodium Chloride (Saline Flush) 10 ml FLUSH ASDIRECTED PRN PRN Reason: flush med Last Admin: 07/16/19 16:20 Dose: 10 ml Discontinued Medications Dextrose/Water (Dextrose 50% In Water) Confirm Administered Dose 50 ml .ROUTE .STK-MED ONE Stop: 07/16/19 05:55 Last Admin: 07/16/19 06:09 Dose: Not Given Dextrose/Water (Dextrose 50% In Water) 50 ml IVPUSH ONETIME ONE Stop: 07/16/19 05:56 Last Admin: 07/16/19 05:50 Dose: 50 ml Diatrizoate Meglum/Diatrizoate Sod (Gastrografin 37%) 30 ml PO . DIRECTED ONE Stop: 07/15/19 13:06 Last Admin: 07/15/19 13:20 Dose: 30 ml Glimepiride (Glimepiride) 4 mg PO WITHBREAKFAST [facility] Last Admin: 07/16/19 12:07 Dose: Not Given Sodium Chloride (Normal Saline) 1,000 mls @ 100 mls/hr IV ASDIRECTED [facility] Last Admin: 07/16/19 01:00 Dose: 100 mls/hr Potassium Chloride 10 meq/ (Premix) 100 mls @ 100 mls/hr IV ONETIME ONE Stop: 07/14/19 13:04 Last Admin: 07/14/19 12:30 Dose: Not Given Potassium Chloride 10 meq/ (Premix) 100 mls @ 100 mls/hr IV Q1H [facility] Potassium Chloride 10 meq/ (Premix) 100 mls @ 100 mls/hr IV Q1H [facility] Stop: 07/14/19 15:59 Last Admin: 07/14/19 15:14 Dose: 100 mls/hr Potassium Chloride 10 meq/ (Premix) 100 mls @ 100 mls/hr IV Q1H [facility] Stop: 07/15/19 18:59 Last Admin: 07/15/19 18:35 Dose: 100 mls/hr Dextrose/Sodium Chloride (Dextrose 5%-Normal Saline) 1,000 mls @ 100 mls/hr IV ASDIRECTED [facility] Last Admin: 07/16/19 05:50 Dose: 100 mls/hr Iopamidol (Isovue-370 (76%)) 100 ml IV . DIRECTED ONE Stop: 07/15/19 13:06 Last Admin: 07/15/19 13:20 Dose: 58 ml Potassium Chloride (Klor-Con M20) 20 meq PO BID [facility] Last Admin: 07/16/19 20:09 Dose: 20 meq - Exam Lungs: Normal Respiratory Effort GI/Abdominal Exam: Normal Bowel Sounds, Soft, Non-Tender, No Distention, Hernia Sepsis Event Note - Evaluation Sepsis Screening Result: No Definite Risk - Focused Exam Vital Signs: Vital Signs Temp Pulse Resp BP BP Pulse Ox 07/17/19 04:00 98.4 F 67 17 130/64 96 07/16/19 23:58 99.3 F 78 17 114/63 96 Date Exam was Performed: 07/17/19 Time Exam was Performed: 08:25 - Problem List & Annotations (1) Hypokalemia SNOMED Code(s): 55351460 Code(s): E87.6 - HYPOKALEMIA Status: Acute Current Visit: Yes (2) Nausea & vomiting SNOMED Code(s): 74650711 Code(s): R11.2 - NAUSEA WITH VOMITING, UNSPECIFIED Status: Acute Current Visit: Yes (3) Partial obstruction of small intestine SNOMED Code(s): 533038944 Code(s): K56.600 - PARTIAL INTESTINAL OBSTRUCTION, UNSPECIFIED TO CAUSE Status: Acute Current Visit: Yes (4) Diabetes type 2, controlled SNOMED Code(s): 44472742, 691954234 Code(s): E11.9 - TYPE 2 DIABETES MELLITUS WITHOUT COMPLICATIONS Status: Chronic Current Visit: Yes Qualifiers: Diabetes mellitus bed bug exterminator insulin use: without chcf use Diabetes mellitus complication status: without complication Qualified Code(s): E11.9 - Type 2 diabetes mellitus without complications (5) Pancreatitis SNOMED Code(s): 32493103 Code(s): K85.90 - ACUTE PANCREATITIS WITHOUT NECROSIS OR INFECTION, UNSP Status: Ruled-out Current Visit: Yes Qualifiers: Chronicity: acute Annotation/Comment:: lipase 4545, normal LFTs & WBCs, will get CT abdomen & pelvis today. (6) UTI (urinary tract infection) SNOMED Code(s): 34730394 Code(s): N39.0 - URINARY TRACT INFECTION, SITE NOT SPECIFIED Status: Acute Current Visit: Yes (7) Palliative care status SNOMED Code(s): 003856205 Code(s): Z51.5 - ENCOUNTER FOR PALLIATIVE CARE Status: Acute Current Visit: Yes - Problem List Review Problem List Initiated/Reviewed/Updated: Yes - My Orders Last 24 Hours: My Active Orders 07/16/19 09:18 Ambulate [RC] ASDIRECTED Convert IV to Saline Lock [OM.PC] Routine 07/16/19 11:25 Sodium Chloride 0.9% [Saline Flush] 10 ml FLUSH ASDIRECTED PRN 07/17/19 09:00 Potassium Chloride [Klor-Con M20] 20 meq PO DAILY 07/17/19 Lunch Consistent Carbohydrate Diet [DIET] - Plan Plan:: 1. Decrease potassium to 20 mg once a day. 2. Stop Rocephin and start Bactrim 1 by mouth twice a day 3. Advance to diabetic diet.
[2019-07-17] MEDS: Potassium Chloride 20 MEQ Tab.ER PO SCH (09:30)
[2019-07-17] MEDS: amLODIPine 2.5 MG Tab PO SCH (09:30)
[2019-07-17] MEDS: Cyanocobalamin (Vitamin B12) 1,000 MCG Tab PO SCH (09:31)
[2019-07-17] MEDS ORDERED: Sulfamethoxazole/Trimethoprim 800-160 MG Tab ONE (09:34)
[2019-07-17] MEDS: Sulfamethoxazole/Trimethoprim 400-80 MG Tab PO SCH ×2 (10:04→20:14)
[2019-07-17] MEDS: Acetaminophen 325 MG Tab PO PRN (14:53)
[2019-07-17] MEDS: Ondansetron 4 MG Tab.DIS PO PRN (14:53)
[2019-07-17] MEDS ORDERED: Insulin Lispro 100 Unit/ML 3 ML KwikPen SUBCUT SCH (17:30)
[2019-07-17] MEDS: metFORMIN 500 MG Tab PO SCH (18:15)
[2019-07-17] MEDS: atorvaSTATin 20 MG Tab PO SCH (20:14)
[2019-07-18] MEDS: Levothyroxine 50 MCG Tab PO SCH (05:36)
[2019-07-18] MEDS: amLODIPine 2.5 MG Tab PO SCH (08:55)
[2019-07-18] MEDS: metFORMIN 500 MG Tab PO SCH (08:55)
[2019-07-18] MEDS: Potassium Chloride 20 MEQ Tab.ER PO SCH (08:55)
[2019-07-18 08:56] VITALS: BP 127/66
[2019-07-18] MEDS: Cyanocobalamin (Vitamin B12) 1,000 MCG Tab PO SCH (08:56)
[2019-07-18] MEDS: Sulfamethoxazole/Trimethoprim 400-80 MG Tab PO SCH (09:09)
--- NOTE | 2019-07-18 09:47 | PCM.PN ---
- General Info Date of Service: 07/18/19 Admission Dx/Problem (Free Text): Patient says she's doing well today. After her lunch she had some abdominal pain. She says she passed a lot of gas and since then has been feeling well. She has normal BMs, no nausea, vomiting or abdominal pain or fevers or chills. - Patient Data Vitals - Most Recent: Last Vital Signs Temp 98.2 F 07/18/19 03:39 Pulse 78 07/18/19 03:39 Resp 18 07/18/19 03:39 BP 127/66 07/18/19 08:55 Pulse Ox 96 07/18/19 03:39 Weight - Most Recent: 112 lb 6 oz Lab Results Last 24 Hours: Laboratory Results - last 24 hr 07/17/19 07/18/19 07/18/19 Range/Units 17:34 05:38 07:00 POC Glucose 188 H 151 H (80-116) mg/dL Lipase 740 H (73-393) U/L Med Orders - Current: Current Medications Acetaminophen (Tylenol) 650 mg PO Q4H PRN PRN Reason: Pain (Mild 1-3)/fever Last Admin: 07/17/19 14:53 Dose: 650 mg Amlodipine Besylate (Norvasc) 2.5 mg PO DAILY [facility] Last Admin: 07/18/19 08:55 Dose: 2.5 mg Atorvastatin Calcium (Lipitor) 20 mg PO BEDTIME [facility] Last Admin: 07/17/19 20:14 Dose: 20 mg Cyanocobalamin (Vitamin B12) 1,000 mcg PO DAILY [facility] Last Admin: 07/18/19 08:56 Dose: 1,000 mcg Heparin Sodium (Porcine) (Heparin Lock Flush 100 Units/Ml) 500 units FLUSH ASDIRECTED PRN PRN Reason: LINE PATENCY Last Admin: 07/16/19 16:28 Dose: 500 units Levothyroxine Sodium (Synthroid) 50 mcg PO DAILY@0600 [facility] Last Admin: 07/18/19 05:36 Dose: 50 mcg Metformin HCl (Glucophage) 500 mg PO BIDMEALS [facility] Last Admin: 07/18/19 08:55 Dose: 500 mg Ondansetron HCl (Zofran Odt) 4 mg PO Q6H PRN PRN Reason: nausea, able to take PO Last Admin: 07/17/19 14:53 Dose: 4 mg Potassium Chloride (Klor-Con M20) 20 meq PO DAILY [facility] Last Admin: 07/18/19 08:55 Dose: 20 meq Sodium Chloride (Saline Flush) 10 ml FLUSH ASDIRECTED PRN PRN Reason: flush med Last Admin: 07/16/19 16:20 Dose: 10 ml Trimethoprim/Sulfamethoxazole (Septra) 1 tab PO BID [facility] Stop: 07/19/19 09:00 Last Admin: 07/18/19 09:09 Dose: 1 tab Discontinued Medications Ceftriaxone Sodium (Rocephin) 1 gm IVPUSH Q24H [facility] Last Admin: 07/16/19 16:20 Dose: 1 gm Dextrose/Water (Dextrose 50% In Water) Confirm Administered Dose 50 ml .ROUTE .STK-MED ONE Stop: 07/16/19 05:55 Last Admin: 07/16/19 06:09 Dose: Not Given Dextrose/Water (Dextrose 50% In Water) 50 ml IVPUSH ONETIME ONE Stop: 07/16/19 05:56 Last Admin: 07/16/19 05:50 Dose: 50 ml Diatrizoate Meglum/Diatrizoate Sod (Gastrografin 37%) 30 ml PO . DIRECTED ONE Stop: 07/15/19 13:06 Last Admin: 07/15/19 13:20 Dose: 30 ml Glimepiride (Glimepiride) 4 mg PO WITHBREAKFAST [facility] Last Admin: 07/16/19 12:07 Dose: Not Given Sodium Chloride (Normal Saline) 1,000 mls @ 100 mls/hr IV ASDIRECTED [facility] Last Admin: 07/16/19 01:00 Dose: 100 mls/hr Potassium Chloride 10 meq/ (Premix) 100 mls @ 100 mls/hr IV ONETIME ONE Stop: 07/14/19 13:04 Last Admin: 07/14/19 12:30 Dose: Not Given Potassium Chloride 10 meq/ (Premix) 100 mls @ 100 mls/hr IV Q1H [facility] Potassium Chloride 10 meq/ (Premix) 100 mls @ 100 mls/hr IV Q1H [facility] Stop: 07/14/19 15:59 Last Admin: 07/14/19 15:14 Dose: 100 mls/hr Potassium Chloride 10 meq/ (Premix) 100 mls @ 100 mls/hr IV Q1H [facility] Stop: 07/15/19 18:59 Last Admin: 07/15/19 18:35 Dose: 100 mls/hr Dextrose/Sodium Chloride (Dextrose 5%-Normal Saline) 1,000 mls @ 100 mls/hr IV ASDIRECTED [facility] Last Admin: 07/16/19 05:50 Dose: 100 mls/hr Iopamidol (Isovue-370 (76%)) 100 ml IV . DIRECTED ONE Stop: 07/15/19 13:06 Last Admin: 07/15/19 13:20 Dose: 58 ml Potassium Chloride (Klor-Con M20) 20 meq PO BID [facility] Last Admin: 07/16/19 20:09 Dose: 20 meq Trimethoprim/Sulfamethoxazole (Septra Ds) Confirm Administered Dose 1 tab .ROUTE .STK-MED ONE Stop: 07/17/19 09:35 Last Admin: 07/17/19 10:06 Dose: Not Given - Exam General: Alert, Oriented, Cooperative GI/Abdominal Exam: Normal Bowel Sounds, Soft, Non-Tender, No Distention, No Mass , Hernia Sepsis Event Note - Evaluation Sepsis Screening Result: No Definite Risk - Focused Exam Vital Signs: Vital Signs Temp Pulse Resp BP BP Pulse Ox 07/18/19 08:55 127/66 07/18/19 03:39 98.2 F 78 18 124/70 96 07/18/19 00:00 98.3 F 84 17 110/56 L 97 Date Exam was Performed: 07/18/19 Time Exam was Performed: 09:46 - Problem List & Annotations (1) Hypokalemia SNOMED Code(s): 01642855 Code(s): E87.6 - HYPOKALEMIA Status: Acute Current Visit: Yes (2) Nausea & vomiting SNOMED Code(s): 45436108 Code(s): R11.2 - NAUSEA WITH VOMITING, UNSPECIFIED Status: Acute Current Visit: Yes (3) Partial obstruction of small intestine SNOMED Code(s): 810180729 Code(s): K56.600 - PARTIAL INTESTINAL OBSTRUCTION, UNSPECIFIED TO CAUSE Status: Acute Current Visit: Yes (4) Diabetes type 2, controlled SNOMED Code(s): 37645852, 669999967 Code(s): E11.9 - TYPE 2 DIABETES MELLITUS WITHOUT COMPLICATIONS Status: Chronic Current Visit: Yes Qualifiers: Diabetes mellitus long chain dyeing machine operator insulin use: without long chain dyeing machine operator use Diabetes mellitus complication status: without complication Qualified Code(s): E11.9 - Type 2 diabetes mellitus without complications (5) Pancreatitis SNOMED Code(s): 73251161 Code(s): K85.90 - ACUTE PANCREATITIS WITHOUT NECROSIS OR INFECTION, UNSP Status: Ruled-out Current Visit: Yes Qualifiers: Chronicity: acute Annotation/Comment:: lipase 4545, normal LFTs & WBCs, will get CT abdomen & pelvis today. (6) UTI (urinary tract infection) SNOMED Code(s): 81441318 Code(s): N39.0 - URINARY TRACT INFECTION, SITE NOT SPECIFIED Status: Acute Current Visit: Yes (7) Palliative care status SNOMED Code(s): 873488044 Code(s): Z51.5 - ENCOUNTER FOR PALLIATIVE CARE Status: Acute Current Visit: Yes - Problem List Review Problem List Initiated/Reviewed/Updated: Yes - My Orders Last 24 Hours: My Active Orders 07/17/19 09:00 Potassium Chloride [Klor-Con M20] 20 meq PO DAILY Sulfamethoxazole/Trimethoprim [Septra] 1 tab PO BID 07/17/19 17:24 Accu Check [Blood Glucose Check, Bedside] [RC] QIDACANDBED 07/17/19 17:42 Accu Check [Blood Glucose Check, Bedside] [RC] BIDMEALS 07/17/19 Lunch Consistent Carbohydrate Diet [DIET] - Plan Plan:: 1. Discharge to home on home health.
--- NOTE | 2019-07-18 09:55 | PCM.DCSUM1 ---
Discharge Summary - Hospital Course Free Text/Narrative:: , IV fluids, nothing by mouth and morphine for pain. Patient had a CT scan that showed large hernia ventral and questionable small bowel obstruction. Her lipase was 1354. No signs of pancreatic necrotizing the CT. Dr. Pettit was consult area he felt there is nothing surgical any follow along if needed. Patient improved and with IV fluids and nothing by mouth. Eventually started some clear liquids and went to full liquids and she tolerated this. I gave her full diet and she has some abdominal pain but then pass a lot of gas and it got better and she tolerated a full diet. Her potassium was a little bit low and replaced and potassium will she was here. She should do well if she has a regular diet at home. She is a diabetic. Her blood sugars were a little low when she was on the Amaryl and I held that. She recheck with Dr. Black in 1 week with a BMP, UA and lipase. She did have a UTI. History of Rocephin and that 'll Bactrim and no treatment at home. Brief History: Cecelia is an 89 yr old female who presented to [facility] today with 4 day history of abdominal pain, nausea and vomiting but no diarrhea. She has not taken her medications for 4 days. She was able to keep some toast and hot water down this morning. Denies any fevers, chills, cold symptoms, shortness of breath, chest pain, dark urine or increased frequency. No rashes or wounds. No myalgias or arthralgias. Seen by COLBY Medrano, who had labs drawn showed hypokalemia at 2.8, Creatinine elevated 1.1, baseline is 0.7(06/29/2019) BUN 67. Lipase 3175, liver functions normal. WBC 7.8, hemoglobin 14.5 Platelets 272. History of colon cancer, with chronic urinary incontinence requiring use of briefs. History cholecystectomy, appendectomy and hysterectomy. History of HTN, Vitamin B12 deficiency, Urinary incontinence, hypothyroid, Diabetes Type 2. Immunizations are up to date. Diagnosis: Stroke: No - Discharge Data Discharge Date: 07/18/19 Discharge Disposition: Home, W Home Health Agency 06 Condition: Good - Referral to Home Health Date of Face to Face Encounter: 07/18/19 Reason for Homebound Status: Disease teaching, observation of disease, strengthening, medication management Primary Care Physician: Young Black MD Skilled Need: Home health disease teaching, observing patient's health to make sure she doesn't deteriorate, home safety - Discharge Diagnosis/Problem(s) (1) Hypokalemia SNOMED Code(s): 59756520 ICD Code: E87.6 - HYPOKALEMIA Status: Acute Current Visit: Yes (2) Nausea & vomiting SNOMED Code(s): 27007247 ICD Code: R11.2 - NAUSEA WITH VOMITING, UNSPECIFIED Status: Acute Current Visit: Yes (3) Partial obstruction of small intestine SNOMED Code(s): 198955994 ICD Code: K56.600 - PARTIAL INTESTINAL OBSTRUCTION, UNSPECIFIED TO CAUSE Status: Acute Current Visit: Yes (4) Diabetes type 2, controlled SNOMED Code(s): 93075970, 565490313 ICD Code: E11.9 - TYPE 2 DIABETES MELLITUS WITHOUT COMPLICATIONS Status: Chronic Current Visit: Yes Qualifiers: Diabetes mellitus terminal supervisor insulin use: without mcc use Diabetes mellitus complication status: without complication Qualified Code(s): E11.9 - Type 2 diabetes mellitus without complications (5) Pancreatitis SNOMED Code(s): 15685666 ICD Code: K85.90 - ACUTE PANCREATITIS WITHOUT NECROSIS OR INFECTION, UNSP Status: Ruled-out Current Visit: Yes Problem Details: lipase 4545, normal LFTs & WBCs, will get CT abdomen & pelvis today. Qualifiers: Chronicity: acute (6) UTI (urinary tract infection) SNOMED Code(s): 12650794 ICD Code: N39.0 - URINARY TRACT INFECTION, SITE NOT SPECIFIED Status: Acute Current Visit: Yes (7) Palliative care status SNOMED Code(s): 813719492 ICD Code: Z51.5 - ENCOUNTER FOR PALLIATIVE CARE Status: Acute Current Visit: Yes - Patient Summary/Data Consults: Consultations 07/15/19 16:24 Consult to Physician [CONS] Routine Consulting Provider: Nikita Pettit Courtesy Call Completed to Consulting Physician: Yes Reason for Consult: ? bowel obstruction Date Notified: 07/15/19 Time Notified: 16:25 - Patient Instructions Diet: Diabetic Diet Activity: As Tolerated Driving: May Drive Today Notify Provider of: Increased Pain, Nausea and/or Vomiting Other/Special Instructions: 1. Recheck with Dr. Black in 1 week with a BMP, lipase and UA. - Discharge Plan Home Medications: Home Meds Glimepiride [Amaryl] 4 mg PO WITHBREAKFAST 08/21/15 [History] Levothyroxine [Synthroid] 50 mcg PO ACBREAKFAST 08/21/15 [History] amLODIPine Besylate [Norvasc] 2.5 mg PO DAILY 08/21/15 [History] atorvaSTATin [Lipitor] 20 mg PO BEDTIME 08/21/15 [History] Cyanocobalamin (Vitamin B-12) [Vitamin B-12] 1,000 mcg PO DAILY 07/14/19 [ History] metFORMIN HCl [Metformin HCl] 500 mg PO BIDMEALS 07/14/19 [History] Patient Handouts: Nausea and Vomiting, Adult, [id number], Fall Prevention in Hospitals, Adult, Venous Thromboembolism Prevention - Discharge Summary/Plan Comment DC Time >30 min.: No - Patient Data Vitals - Most Recent: Last Vital Signs Temp 98.2 F 07/18/19 03:39 Pulse 78 07/18/19 03:39 Resp 18 07/18/19 03:39 BP 127/66 07/18/19 08:55 Pulse Ox 96 07/18/19 03:39 Weight - Most Recent: 112 lb 6 oz Lab Results - Last 24 hrs: Laboratory Results - last 24 hr 07/17/19 07/18/19 07/18/19 Range/Units 17:34 05:38 07:00 POC Glucose 188 H 151 H (80-116) mg/dL Lipase 740 H (73-393) U/L Med Orders - Current: Current Medications Acetaminophen (Tylenol) 650 mg PO Q4H PRN PRN Reason: Pain (Mild 1-3)/fever Last Admin: 07/17/19 14:53 Dose: 650 mg Amlodipine Besylate (Norvasc) 2.5 mg PO DAILY JOHNNIE Last Admin: 07/18/19 08:55 Dose: 2.5 mg Atorvastatin Calcium (Lipitor) 20 mg PO BEDTIME JOHNNIE Last Admin: 07/17/19 20:14 Dose: 20 mg Cyanocobalamin (Vitamin B12) 1,000 mcg PO DAILY JOHNNIE Last Admin: 07/18/19 08:56 Dose: 1,000 mcg Heparin Sodium (Porcine) (Heparin Lock Flush 100 Units/Ml) 500 units FLUSH ASDIRECTED PRN PRN Reason: LINE PATENCY Last Admin: 07/16/19 16:28 Dose: 500 units Levothyroxine Sodium (Synthroid) 50 mcg PO DAILY@0600 [facility] Last Admin: 07/18/19 05:36 Dose: 50 mcg Metformin HCl (Glucophage) 500 mg PO BIDMEALS [facility] Last Admin: 07/18/19 08:55 Dose: 500 mg Ondansetron HCl (Zofran Odt) 4 mg PO Q6H PRN PRN Reason: nausea, able to take PO Last Admin: 07/17/19 14:53 Dose: 4 mg Potassium Chloride (Klor-Con M20) 20 meq PO DAILY [facility] Last Admin: 07/18/19 08:55 Dose: 20 meq Sodium Chloride (Saline Flush) 10 ml FLUSH ASDIRECTED PRN PRN Reason: flush med Last Admin: 07/16/19 16:20 Dose: 10 ml Trimethoprim/Sulfamethoxazole (Septra) 1 tab PO BID [facility] Stop: 07/19/19 09:00 Last Admin: 07/18/19 09:09 Dose: 1 tab Discontinued Medications Ceftriaxone Sodium (Rocephin) 1 gm IVPUSH Q24H [facility] Last Admin: 07/16/19 16:20 Dose: 1 gm Dextrose/Water (Dextrose 50% In Water) Confirm Administered Dose 50 ml .ROUTE .STK-MED ONE Stop: 07/16/19 05:55 Last Admin: 07/16/19 06:09 Dose: Not Given Dextrose/Water (Dextrose 50% In Water) 50 ml IVPUSH ONETIME ONE Stop: 07/16/19 05:56 Last Admin: 07/16/19 05:50 Dose: 50 ml Diatrizoate Meglum/Diatrizoate Sod (Gastrografin 37%) 30 ml PO . DIRECTED ONE Stop: 07/15/19 13:06 Last Admin: 07/15/19 13:20 Dose: 30 ml Glimepiride (Glimepiride) 4 mg PO WITHBREAKFAST [facility] Last Admin: 07/16/19 12:07 Dose: Not Given Sodium Chloride (Normal Saline) 1,000 mls @ 100 mls/hr IV ASDIRECTED [facility] Last Admin: 07/16/19 01:00 Dose: 100 mls/hr Potassium Chloride 10 meq/ (Premix) 100 mls @ 100 mls/hr IV ONETIME ONE Stop: 07/14/19 13:04 Last Admin: 07/14/19 12:30 Dose: Not Given Potassium Chloride 10 meq/ (Premix) 100 mls @ 100 mls/hr IV Q1H [facility] Potassium Chloride 10 meq/ (Premix) 100 mls @ 100 mls/hr IV Q1H [facility] Stop: 07/14/19 15:59 Last Admin: 07/14/19 15:14 Dose: 100 mls/hr Potassium Chloride 10 meq/ (Premix) 100 mls @ 100 mls/hr IV Q1H [facility] Stop: 07/15/19 18:59 Last Admin: 07/15/19 18:35 Dose: 100 mls/hr Dextrose/Sodium Chloride (Dextrose 5%-Normal Saline) 1,000 mls @ 100 mls/hr IV ASDIRECTED [facility] Last Admin: 07/16/19 05:50 Dose: 100 mls/hr Iopamidol (Isovue-370 (76%)) 100 ml IV . DIRECTED ONE Stop: 07/15/19 13:06 Last Admin: 07/15/19 13:20 Dose: 58 ml Potassium Chloride (Klor-Con M20) 20 meq PO BID [facility] Last Admin: 07/16/19 20:09 Dose: 20 meq Trimethoprim/Sulfamethoxazole (Septra Ds) Confirm Administered Dose 1 tab .ROUTE .STK-MED ONE Stop: 07/17/19 09:35 Last Admin: 07/17/19 10:06 Dose: Not Given
[2019-07-18] MEDS: Sodium Chloride 0.9% 10 ML Syringe FLUSH PRN (11:00)
[2019-07-18 13:15] VITALS: PULSE 84
== END 2019-07-18 11:40 | disposition home health service (06) | DRG 394 ==
LOC: FB.MS 11:05
PROVIDERS: ADMIT Family Medicine; ATTEND Family Medicine
DX: K43.6 Other and unspecified ventral hernia with obstruction, without gangrene (principal); N39.0 Urinary tract infection, site not specified; E87.6 Hypokalemia; E53.8 Deficiency of other specified B group vitamins; E03.9 Hypothyroidism, unspecified; Z66 Do not resuscitate; Z51.5 Encounter for palliative care; H54.7 Unspecified visual loss; E78.00 Pure hypercholesterolemia, unspecified; I10 Essential (primary) hypertension; E11.9 Type 2 diabetes mellitus without complications; Z96.649 Presence of unspecified artificial hip joint; Z85.038 Personal history of other malignant neoplasm of large intestine; Z90.49 Acquired absence of other specified parts of digestive tract; Z88.1 Allergy status to other antibiotic agents; Z79.890 Hormone replacement therapy; Z79.84 Long term (current) use of oral hypoglycemic drugs; Z79.899 Other long term (current) drug therapy; Z98.49 Cataract extraction status, unspecified eye; Z90.710 Acquired absence of both cervix and uterus
CPT/HCPCS: 36415; 74177; 80048; 81001; 82962; 83690; 83735; 85025; 87086; 87088; 87186; A9270-GY; J0696; J1642; J1815; J3480; J7030; Q9963; Q9967

== ENCOUNTER 2019-07-20 08:21 | Inpatient (IN) | payer MEDICARE, BC, MEDICAID ==
[2019-07-20] MEDS ORDERED: Sodium Chloride 0.9% 10 ML Syringe FLUSH PRN (08:28)
[2019-07-20] MEDS ORDERED: Ondansetron 4 MG/2 ML SDV IVPUSH ONE ×2 (08:30→10:13)
[2019-07-20] MEDS ORDERED: Sodium Chloride 0.9% 1,000 ML IV SCH ×2 (08:30→10:45)
[2019-07-20] MEDS ORDERED: Iopamidol 755 Mg/ML 100 ML Bottle IV ONE (09:02)
--- NOTE | 2019-07-20 10:09 | CT ---
INDICATION: Abdominal pain, mid portion, nausea and vomiting. CT ABDOMEN AND PELVIS WITH CONTRAST: Spiral 3.75 mm axial sections were obtained through the abdomen and pelvis with 60 mL Isovue-370 at 1.7 mL per second with sagittal and coronal reconstructions 07/20/19 and were compared with 07/15/19. Total exam DLP was 377.79 mGy-cm. There are again noted multiple loops of dilated small bowel including most of the ileum, an area of narrowing is not definitely visualized, but is most likely present in the pelvis. There is a suspected area of narrowing in the right lower quadrant at the level of the distal ileum. The terminal ileum was visualized . The colon is visualized with concentrated contrast which was administered on the previous CT, no contrast was seen in the small bowel. The ventral hernia seen on the previous examination shows evidence of a loop of transverse colon without evidence of obstruction to that loop, it is filled with barium also as is the remainder of the colon for the most part. Some portions of the colon simply have air within them. No other organomegaly or definite mass lesions were identified. No other changes are noted compared with the previous study. No evidence of obstructive uropathy was seen. 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 There are likely some minimal linear atelectatic changes at the lung bases and/ or fibrosis in those areas of the lingula and both lower lobes. Along with small bowel obstruction, there is moderate distention of the stomach which is filled with fluid. IMPRESSION: 1. Findings are compatible with a partial small bowel obstruction with fairly severe dilatation of the small bowel loops. Other etiologies such as ischemia are difficult to entirely exclude in this patient with evidence of atherosclerotic disease. 2. Ventral hernia includes a loop of transverse colon, but does not appear to be obstructive. 3. Fibrotic and/or linear atelectatic changes at the lung bases. 4. Minimal cystic changes again noted in the kidneys. 5. Patient is post appendectomy, cholecystectomy, hysterectomy with oophorectomy, and total hip replacement on the right. 6. Mild dextroconvex scoliosis lumbar spine again noted. Report was called to Dr. Fox at [address] [facility]
[2019-07-20] MEDS ORDERED: Morphine 2 MG/ML Syringe IVPUSH ONE (10:13)
--- NOTE | 2019-07-20 10:33 | EDM.PDOC ---
ED HPI GENERAL MEDICAL PROBLEM - General Chief Complaint: Abdominal Pain Time Seen by Provider: 07/20/19 08:30 Source of Information: Reports: Patient, Family History Limitations: Reports: No Limitations - History of Present Illness INITIAL COMMENTS - FREE TEXT/NARRATIVE: Patient presented to the ED because of persistent N/V since yesterday and couldn 't keep anything down. There is associated abdominal pain,cramping,7/10. there is no fever or chills, no changes in bowel movements or urinary symptoms. She was admitted on 07/24/19 due to an acute pancreatitis and was discharged on . She was seen by Dr. Owens for her abdominal pain and hernia and recommended observation. Lower abdomen Pain Score (Numeric/FACES): 6 - Related Data Allergies Allergy/AdvReac Type Severity Reaction Status Date / Time celecoxib [From Celebrex] Allergy Intermediate Hives Verified 07/14/19 16:58 Home Meds: Home Meds Glimepiride [Amaryl] 4 mg PO WITHBREAKFAST 08/21/15 [History] Levothyroxine [Synthroid] 50 mcg PO ACBREAKFAST 08/21/15 [History] amLODIPine Besylate [Norvasc] 2.5 mg PO DAILY 08/21/15 [History] atorvaSTATin [Lipitor] 20 mg PO BEDTIME 08/21/15 [History] Cyanocobalamin (Vitamin B-12) [Vitamin B-12] 1,000 mcg PO DAILY 07/14/19 [ History] metFORMIN HCl [Metformin HCl] 500 mg PO BIDMEALS 07/14/19 [History] Past Medical History - Past Health History Medical/Surgical History: Denies Medical/Surgical History HEENT History: Reports: Cataract, Impaired Vision Cardiovascular History: Reports: High Cholesterol, Hypertension Respiratory History: Reports: None Gastrointestinal History: Reports: Cholelithiasis, Irritable Bowel Syndrome Genitourinary History: Reports: Urinary Incontinence HOSE CEMENTER History: Reports: Other HOSE CEMENTER History: III PARA III Musculoskeletal History: Reports: Arthritis Other Musculoskeletal History: RELATES RIGHT TOTAL HIP, ET HAS PROBLEMS WITH PAIN OF LEFT KNEE Neurological History: Reports: None Psychiatric History: Reports: None Endocrine/Metabolic History: Reports: Diabetes, Type II Hematologic History: Reports: None Immunologic History: Reports: None Oncologic (Cancer) History: Reports: Colon Dermatologic History: Reports: None - Infectious Disease History Infectious Disease History: Reports: Chicken Pox, Measles - Past Surgical History HEENT Surgical History: Reports: Cataract Surgery, Oral Surgery, Tonsillectomy GI Surgical History: Reports: Cholecystectomy, Other (See Below) (Colectomy) Female Surgical History: Reports: Breast Biopsy, Hysterectomy, Salpingo- Oophorectomy, Other (See Below) (Bladder sling) Musculoskeletal Surgical History: Reports: Hip Replacement Social & Family History - Caffeine Use Caffeine Use: Reports: Coffee ED ROS GENERAL - Review of Systems Review Of Systems: See Below Constitutional: Denies: Fever, Chills HEENT: Reports: No Symptoms Respiratory: Reports: No Symptoms Cardiovascular: Reports: No Symptoms Endocrine: Reports: No Symptoms GI/Abdominal: Reports: Abdominal Pain, Nausea, Vomiting : Reports: No Symptoms Musculoskeletal: Reports: No Symptoms Skin: Reports: No Symptoms Neurological: Reports: No Symptoms Psychiatric: Reports: No Symptoms Hematologic/Lymphatic: Reports: No Symptoms Immunologic: Reports: No Symptoms ED EXAM, GI/ABD - Physical Exam Exam: See Below Exam Limited By: No Limitations General Appearance: Alert, No Apparent Distress Ears: Normal External Exam, Normal Canal, Hearing Grossly Normal Nose: Normal Inspection, Normal Mucosa, No Blood Throat/Mouth: Normal Inspection, Normal Lips, Normal Teeth, Normal Gums Head: Atraumatic, Normocephalic Neck: Normal Inspection, Supple, Non-Tender, Full Range of Motion Respiratory/Chest: No Respiratory Distress, Lungs Clear, Normal Breath Sounds, No Accessory Muscle Use Cardiovascular: Normal Peripheral Pulses, Regular Rate, Rhythm, No Edema, No Gallop, No JVD, No Murmur, No Rub GI/Abdominal Exam: Normal Bowel Sounds, No Organomegaly, No Distention, No Abnormal Bruit, Other (tenderness over the LLQ,RLQ and suprapubic area) Back Exam: Normal Inspection, Full Range of Motion Course - Vital Signs Text/Narrative:: Labs/Abd and pelvis CT was discussed with patient and son and verbalized full understanding NS 1 L bolus ofran 4 mg IV x2 doses morphine 2 mg IV x1 dose Case discussed with Dr Wei who agreed with the plan to admit patient to bes, IVF hydration,NPO,and surgery consult. Last Recorded V/S: Last Vital Signs Temp 36.4 C 07/20/19 08:21 Pulse 113 H 07/20/19 08:21 Resp 18 07/20/19 08:21 BP 135/72 07/20/19 08:21 Pulse Ox 100 07/20/19 08:21 - Orders/Labs/Meds Orders: Active Orders 24 hr Category Date Time Status UA W/MICROSCOPIC [URIN] Stat Lab 07/20/19 08:28 Ordered Sodium Chloride 0.9% [Normal Saline] 1,000 ml Med 07/20/19 08:30 Active IV ASDIRECTED Sodium Chloride 0.9% [Saline Flush] Med 07/20/19 08:28 Active 10 ml FLUSH ASDIRECTED PRN Saline Lock Insert [OM.PC] Routine Oth 07/20/19 08:28 Ordered Medication Orders Sodium Chloride (Normal Saline) 1,000 mls @ 999 mls/hr IV ASDIRECTED JOHNNIE Last Admin: 07/20/19 09:38 Dose: 999 mls/hr Sodium Chloride (Saline Flush) 10 ml FLUSH ASDIRECTED PRN PRN Reason: Keep Vein Open Labs: Laboratory Tests 07/20/19 07/20/19 07/20/19 Range/Units 08:40 08:40 08:40 WBC 9.9 (4.5-12.0) X10-3/uL RBC 4.19 (3.23-5.20) x10(6)uL Hgb 13.3 (11.5-15.5) g/dL Hct 40.3 (30.0-51.3) % MCV 96.1 H (80-96) fL MCH 31.7 (27.7-33.6) pg MCHC 32.9 (32.2-35.4) g/dL RDW 12.4 (11.5-15.5) % Plt Count 365 (125-369) X10(3)uL MPV 7.3 L (7.4-10.4) fL Neut % (Auto) 73.7 (46-82) % Lymph % (Auto) 19.3 (13-37) % [place] % (Auto) 5.4 (4-12) % Eos % (Auto) 1 (1.0-5.0) % Baso % (Auto) 1 (0-2) % Neut # (Auto) 7.3 (1.6-8.3) # Lymph # (Auto) 1.9 (0.6-5.0) # [place] # (Auto) 0.5 (0.0-1.3) # Eos # (Auto) 0.1 (0.0-0.8) # Baso # (Auto) 0.1 (0.0-0.2) # Sodium 139 (135-145) mmol/L Potassium 4.2 (3.5-5.3) mmol/L Chloride 101 (100-110) mmol/L Carbon Dioxide 27 (21-32) mmol/L BUN 8 (7-18) mg/dL Creatinine 0.8 (0.55-1.02) mg/dL Est Cr Clr Drug Dosing TNP Estimated GFR (MDRD) > 60 (>60) BUN/Creatinine Ratio 10.0 (9-20) Glucose 111 (80-116) mg/dL Calcium 9.0 (8.6-10.2) mg/dL Total Bilirubin 0.6 (0.1-1.3) mg/dL AST 22 D (5-25) IU/L ALT 19 D (12-36) U/L Alkaline Phosphatase 57 (56-112) IU/L Total Protein 6.6 (6.0-8.0) g/dL Albumin 3.2 (2.9-4.5) g/dL Globulin 3.4 g/dL Albumin/Globulin Ratio 0.9 Amylase 167 H (25-115) U/L Lipase 579 H (73-393) U/L Meds: Medications Generic Name Dose Route Start Last Admin Trade Name Freq PRN Reason Stop Dose Admin Sodium Chloride 1,000 mls @ 999 mls/hr 07/20/19 08:30 07/20/19 09:38 Normal Saline IV 999 mls/hr ASDIRECTED JOHNNIE Administration Sodium Chloride 10 ml 07/20/19 08:28 Saline Flush FLUSH ASDIRECTED PRN Keep Vein Open Discontinued Medications Generic Name Dose Route Start Last Admin Trade Name Freq PRN Reason Stop Dose Admin Iopamidol 100 ml 07/20/19 09:02 07/20/19 09:14 Isovue-370 (76%) IV 07/20/19 09:03 60 ml . DIRECTED ONE Administration Morphine Sulfate 2 mg 07/20/19 10:13 Morphine IVPUSH 07/20/19 10:14 ONETIME ONE Ondansetron HCl 4 mg 07/20/19 08:30 07/20/19 09:43 Zofran IVPUSH 07/20/19 08:31 4 mg ONETIME ONE Administration Ondansetron HCl 4 mg 07/20/19 10:13 Zofran IVPUSH 07/20/19 10:14 ONETIME ONE Departure - Departure Time of Disposition: 10:40 Disposition: Refer to Observation Condition: Good Clinical Impression: SBO (small bowel obstruction) - Discharge Information Referrals: Young Black MD [Primary Care Provider] - Sepsis Event Note - Evaluation Sepsis Screening Result: No Definite Risk - Focused Exam Vital Signs: Vital Signs Temp Pulse Resp BP Pulse Ox 07/20/19 08:21 36.4 C 113 H 18 135/72 100 Date Exam was Performed: 07/20/19 Time Exam was Performed: 10:28 - My Orders Last 24 Hours: My Active Orders 07/20/19 08:28 UA W/MICROSCOPIC [URIN] Stat Sodium Chloride 0.9% [Saline Flush] 10 ml FLUSH ASDIRECTED PRN Saline Lock Insert [OM.PC] Routine 07/20/19 08:30 Sodium Chloride 0.9% [Normal Saline] 1,000 ml IV ASDIRECTED - Assessment/Plan Last 24 Hours: My Active Orders 07/20/19 08:28 UA W/MICROSCOPIC [URIN] Stat Sodium Chloride 0.9% [Saline Flush] 10 ml FLUSH ASDIRECTED PRN Saline Lock Insert [OM.PC] Routine 07/20/19 08:30 Sodium Chloride 0.9% [Normal Saline] 1,000 ml IV ASDIRECTED
[2019-07-20] MEDS ORDERED: Ondansetron 4 MG/2 ML SDV IVPUSH PRN (10:39)
[2019-07-20] MEDS ORDERED: Morphine 2 MG/ML Syringe IVPUSH PRN (10:39)
--- NOTE | 2019-07-20 12:55 | PCM.HP.2 ---
H&P History of Present Illness - General Date of Service: 07/20/19 Admit Problem/Dx: Admission Diagnosis/Problem Admission Diagnosis/Problem Small bowel obstruction Source of Information: Patient History Limitations: Reports: No Limitations - History of Present Illness Initial Comments - Free Text/Narative: This is an 89-year-old female patient that went home less than a week ago after pancreatitis and possible small bowel obstruction. She was able to tolerate fluids, full diet and she was passing her bowels. Went home back to [facility] and after each meal she was vomiting. Last night her pain became worse in the epigastrium and she had bloating per she says she did have a BM today. She denies fevers, chills, dysuria, pyuria, hematuria. She is incontinent. Lower abdomen Pain Score (Numeric/FACES): 6 - Related Data Allergies/Adverse Reactions: Allergies Allergy/AdvReac Type Severity Reaction Status Date / Time celecoxib [From Celebrex] Allergy Intermediate Hives Verified 07/14/19 16:58 Home Medications: Home Meds Glimepiride [Amaryl] 4 mg PO WITHBREAKFAST 08/21/15 [History] Levothyroxine [Synthroid] 50 mcg PO ACBREAKFAST 08/21/15 [History] amLODIPine Besylate [Norvasc] 2.5 mg PO DAILY 08/21/15 [History] atorvaSTATin [Lipitor] 20 mg PO BEDTIME 08/21/15 [History] Cyanocobalamin (Vitamin B-12) [Vitamin B-12] 1,000 mcg PO DAILY 07/14/19 [ History] metFORMIN HCl [Metformin HCl] 500 mg PO BIDMEALS 07/14/19 [History] Past Medical History - Past Health History Medical/Surgical History: Denies Medical/Surgical History HEENT History: Reports: Cataract, Impaired Vision Cardiovascular History: Reports: High Cholesterol, Hypertension Respiratory History: Reports: None Gastrointestinal History: Reports: Cholelithiasis, Irritable Bowel Syndrome Other Gastrointestinal History: colon CA Genitourinary History: Reports: Urinary Incontinence [employer] History: Reports: Other OB/BYN History: III PARA III Musculoskeletal History: Reports: Arthritis Other Musculoskeletal History: RELATES RIGHT TOTAL HIP, ET HAS PROBLEMS WITH PAIN OF LEFT KNEE Neurological History: Reports: None Psychiatric History: Reports: None Endocrine/Metabolic History: Reports: Diabetes, Type II Hematologic History: Reports: None Immunologic History: Reports: None Oncologic (Cancer) History: Reports: Colon Dermatologic History: Reports: None - Infectious Disease History Infectious Disease History: Reports: Chicken Pox, Measles - Past Surgical History HEENT Surgical History: Reports: Cataract Surgery, Oral Surgery, Tonsillectomy GI Surgical History: Reports: Cholecystectomy, Other (See Below) (Colectomy) Female Surgical History: Reports: Breast Biopsy, Hysterectomy, Salpingo- Oophorectomy, Other (See Below) (Bladder sling) Musculoskeletal Surgical History: Reports: Hip Replacement Social & Family History - Family History Family Medical History: Noncontributory - Tobacco Use Smoking Status *Q: Never Smoker - Caffeine Use Caffeine Use: Reports: Coffee - Recreational Drug Use Recreational Drug Use: No H&P Review of Systems - Review of Systems: Review Of Systems: See Below General: Reports: No Symptoms HEENT: Reports: No Symptoms Pulmonary: Reports: No Symptoms Cardiovascular: Reports: No Symptoms Gastrointestinal: Reports: Abdominal Pain, Nausea, Vomiting. Denies: Black Stool, Bloody Stool Genitourinary: Reports: Other (Incontinence) Musculoskeletal: Reports: No Symptoms Skin: Reports: No Symptoms Psychiatric: Reports: No Symptoms Neurological: Reports: No Symptoms Hematologic/Lymphatic: Reports: No Symptoms Immunologic: Reports: No Symptoms Exam - Exam Exam: See Below - Vital Signs Vital Signs: Last Vital Signs Temp 97.6 F 07/20/19 08:21 Pulse 79 07/20/19 11:11 Resp 15 07/20/19 11:11 BP 137/64 07/20/19 11:11 Pulse Ox 99 07/20/19 11:11 Weight: 124 lb 2 oz - Exam General: Alert, Oriented, Cooperative HEENT: Hearing Intact, Posterior Pharynx Clear, TMs Clear Neck: Supple, Trachea Midline Lungs: Clear to Auscultation, Normal Respiratory Effort Cardiovascular: Regular Rate, Regular Rhythm. No: Systolic Murmur GI/Abdominal Exam: Other (Abdomen is distended with hypoactive bowel sounds. Tender to soft palpation. Mild guarding.) Extremities: Normal Inspection, Non-Tender, No Pedal Edema Skin: Warm, Dry, Intact Neurological: Normal Speech, Normal Tone Psychiatric: Alert, Normal Mood - Patient Data Lab Results Last 24 hrs: Laboratory Results - last 24 hr 01/21/20 01/21/20 01/21/20 Range/Units 08:40 08:40 08:40 WBC 9.9 (4.5-12.0) X10-3/uL RBC 4.19 (3.23-5.20) x10(6)uL Hgb 13.3 (11.5-15.5) g/dL Hct 40.3 (30.0-51.3) % MCV 96.1 H (80-96) fL MCH 31.7 (27.7-33.6) pg MCHC 32.9 (32.2-35.4) g/dL RDW 12.4 (11.5-15.5) % Plt Count 365 (125-369) X10(3)uL MPV 7.3 L (7.4-10.4) fL Neut % (Auto) 73.7 (46-82) % Lymph % (Auto) 19.3 (13-37) % [place] % (Auto) 5.4 (4-12) % Eos % (Auto) 1 (1.0-5.0) % Baso % (Auto) 1 (0-2) % Neut # (Auto) 7.3 (1.6-8.3) # Lymph # (Auto) 1.9 (0.6-5.0) # [place] # (Auto) 0.5 (0.0-1.3) # Eos # (Auto) 0.1 (0.0-0.8) # Baso # (Auto) 0.1 (0.0-0.2) # Sodium 139 (135-145) mmol/L Potassium 4.2 (3.5-5.3) mmol/L Chloride 101 (100-110) mmol/L Carbon Dioxide 27 (21-32) mmol/L BUN 8 (7-18) mg/dL Creatinine 0.8 (0.55-1.02) mg/dL Est Cr Clr Drug Dosing TNP Estimated GFR (MDRD) > 60 (>60) BUN/Creatinine Ratio 10.0 (9-20) Glucose 111 (80-116) mg/dL Calcium 9.0 (8.6-10.2) mg/dL Total Bilirubin 0.6 (0.1-1.3) mg/dL AST 22 D (5-25) IU/L ALT 19 D (12-36) U/L Alkaline Phosphatase 57 (56-112) IU/L Total Protein 6.6 (6.0-8.0) g/dL Albumin 3.2 (2.9-4.5) g/dL Globulin 3.4 g/dL Albumin/Globulin Ratio 0.9 Amylase 167 H (25-115) U/L Lipase 579 H (73-393) U/L Result Diagrams: 07/20/19 08:40 07/20/19 08:40 Sepsis Event Note - Evaluation Sepsis Screening Result: No Definite Risk - Focused Exam Vital Signs: Vital Signs Temp Pulse Resp BP Pulse Ox 07/20/19 11:11 79 15 137/64 99 07/20/19 09:44 91 18 137/61 98 07/20/19 08:21 97.6 F 113 H 18 135/72 100 Date Exam was Performed: 07/20/19 Time Exam was Performed: 12:50 - Problem List (1) SBO (small bowel obstruction) SNOMED Code(s): 940749962 ICD Code: K56.609 - UNSP INTESTNL OBST, UNSP TO PARTIAL VERSUS COMPLETE OBST Status: Acute Current Visit: Yes (2) Palliative care status SNOMED Code(s): 755316327 ICD Code: Z51.5 - ENCOUNTER FOR PALLIATIVE CARE Status: Acute Current Visit: No Problem List Initiated/Reviewed/Updated: Yes Orders Last 24hrs: Active Orders 24 hr Category Date Time Status Patient Status [ADT] Routine ADT 07/20/19 10:40 Active Accu Check [Blood Glucose Check, Bedside] [RC] BIDAC Care 07/20/19 10:48 Active Intake and Output [RC] QSHIFT Care 07/20/19 10:44 Active Notify Provider Consults [RC] ASDIRECTED Care 07/20/19 12:50 Ordered Oxygen Therapy [RC] PRN Care 07/20/19 10:40 Active Pulse Oximetry [RC] CONTINUOUS Care 07/20/19 10:44 Active Up With Assistance [RC] ASDIRECTED Care 07/20/19 10:40 Active VTE/DVT Education [RC] Per Unit Routine Care 07/20/19 10:40 Active Vital Signs [RC] Q4H Care 07/20/19 10:40 Active Consult to Physician [CONS] Routine Cons 07/20/19 12:49 Ordered Nothing per Oral Now Diet [DIET] Diet 07/20/19 Lunch Ordered BASIC METABOLIC PANEL,BMP [CHEM] Timed Lab 07/21/19 06:00 Ordered CBC WITH AUTO DIFF [HEME] Timed Lab 07/21/19 06:00 Ordered UA W/MICROSCOPIC [URIN] Stat Lab 07/20/19 08:28 Ordered Morphine Med 07/20/19 10:39 Active 2 mg IVPUSH Q2H PRN Ondansetron [Zofran] Med 07/20/19 10:39 Active 4 mg IVPUSH Q4H PRN Sodium Chloride 0.9% [Normal Saline] 1,000 ml Med 07/20/19 10:45 Active IV ASDIRECTED Sodium Chloride 0.9% [Saline Flush] Med 07/20/19 08:28 Active 10 ml FLUSH ASDIRECTED PRN Saline Lock Insert [OM.PC] Routine Oth 07/20/19 08:28 Ordered Sequential Compression Device [OM.PC] Per Unit Routine Oth 07/20/19 10:44 Ordered Resuscitation Status Routine Resus Stat 07/20/19 10:40 Ordered Medication Orders Sodium Chloride (Normal Saline) 1,000 mls @ 125 mls/hr IV ASDIRECTED JOHNNIE Morphine Sulfate (Morphine) 2 mg IVPUSH Q2H PRN PRN Reason: Pain Ondansetron HCl (Zofran) 4 mg IVPUSH Q4H PRN PRN Reason: Nausea/Vomiting Sodium Chloride (Saline Flush) 10 ml FLUSH ASDIRECTED PRN PRN Reason: Keep Vein Open Assessment/Plan Comment:: 1. Admit to inpatient 2. Hold off Lovenox until surgery consult. 3. Surgery consult and I called the surgeon. 4. Nothing by mouth 5. IV fluids 6. Morphine for pain and Zofran for nausea or vomiting 7. Patient wants to be a DNR. - Mortality Measure Prognosis:: Good
[2019-07-20] MEDS ORDERED: Lidocaine 2% HCl 6 ML JEL.PF.APP ONE (18:10)
[2019-07-20] MEDS: Sodium Chloride 0.9% 1,000 ML IV SCH (18:34)
--- NOTE | 2019-07-20 18:39 | CONS ---
DATE OF CONSULT: 07/20/2019 HISTORY: This 89-year-old female who is seen in followup of her recent hospitalization and was readmitted this morning with small-bowel obstruction. She was feeling better last week and was discharged over the weekend and tolerating a regular diet and having bowel movements. She states that her abdomen always did remain distended to some degree. In reviewing her chart, her lipase is significantly improved and is down to 579. CT scan was obtained and I have reviewed this. The findings are consistent with a small-bowel obstruction. Her ventral hernia is still present and appears to have colon in it and is not the point of obstruction. PHYSICAL EXAMINATION: GENERAL: Reveals a pleasant lady in no acute distress. She states that her pain has completely resolved compared to earlier today. She had an emesis this morning, but none since. ABDOMEN: Moderately distended and ventral hernia is soft and easily reducible. There are no peritoneal signs. There are no masses present. LABORATORY DATA: Laboratory evaluation is reviewed. WBC is normal at 9.9 and electrolytes are normal. Amylase is down to 579. ASSESSMENT: Small bowel obstruction. PLAN: Findings reviewed with the patient and her son and recommend conservative measures with NG tube placement and follow up tomorrow with abdominal x-rays. If symptoms have not improved in the next 24 to 48 hours, I told her that she should think about whether or not she would want to proceed with laparotomy. /[id number] MARY/[place]
[2019-07-21] MEDS: Sodium Chloride 0.9% 1,000 ML IV SCH ×2 (04:57→15:02)
--- NOTE | 2019-07-21 08:16 | PCM.PN ---
- General Info Date of Service: 07/21/19 Admission Dx/Problem (Free Text): The patient has no complaints. She denies abdominal pain, Nausea, vomiting, fevers or chills - Patient Data Vitals - Most Recent: Last Vital Signs Temp 98.6 F 07/21/19 03:00 Pulse 82 07/21/19 03:00 Resp 18 07/21/19 06:58 BP 138/70 07/21/19 03:00 Pulse Ox 98 07/21/19 03:00 Weight - Most Recent: 124 lb 2 oz I&O - Last 24 Hours: Intake & Output 07/20/19 07/21/19 07/21/19 22:59 06:59 14:59 Intake Total 2240 771 Output Total 275 325 Balance 1965 446 Lab Results Last 24 Hours: Laboratory Results - last 24 hr 07/20/19 07/20/19 07/20/19 Range/Units 08:40 08:40 08:40 WBC 9.9 (4.5-12.0) X10-3/uL RBC 4.19 (3.23-5.20) x10(6)uL Hgb 13.3 (11.5-15.5) g/dL Hct 40.3 (30.0-51.3) % MCV 96.1 H (80-96) fL MCH 31.7 (27.7-33.6) pg MCHC 32.9 (32.2-35.4) g/dL RDW 12.4 (11.5-15.5) % Plt Count 365 (125-369) X10(3)uL MPV 7.3 L (7.4-10.4) fL Neut % (Auto) 73.7 (46-82) % Lymph % (Auto) 19.3 (13-37) % [place] % (Auto) 5.4 (4-12) % Eos % (Auto) 1 (1.0-5.0) % Baso % (Auto) 1 (0-2) % Neut # (Auto) 7.3 (1.6-8.3) # Lymph # (Auto) 1.9 (0.6-5.0) # [place] # (Auto) 0.5 (0.0-1.3) # Eos # (Auto) 0.1 (0.0-0.8) # Baso # (Auto) 0.1 (0.0-0.2) # Sodium 139 (135-145) mmol/L Potassium 4.2 (3.5-5.3) mmol/L Chloride 101 (100-110) mmol/L Carbon Dioxide 27 (21-32) mmol/L BUN 8 (7-18) mg/dL Creatinine 0.8 (0.55-1.02) mg/dL Est Cr Clr Drug Dosing TNP Estimated GFR (MDRD) > 60 (>60) BUN/Creatinine Ratio 10.0 (9-20) Glucose 111 (80-116) mg/dL POC Glucose (80-116) mg/dL Calcium 9.0 (8.6-10.2) mg/dL Total Bilirubin 0.6 (0.1-1.3) mg/dL AST 22 D (5-25) IU/L ALT 19 D (12-36) U/L Alkaline Phosphatase 57 (56-112) IU/L Total Protein 6.6 (6.0-8.0) g/dL Albumin 3.2 (2.9-4.5) g/dL Globulin 3.4 g/dL Albumin/Globulin Ratio 0.9 Amylase 167 H (25-115) U/L Lipase 579 H (73-393) U/L Urine Color (YELLOW) Urine Appearance (CLEAR) Urine pH (5.0-6.5) Ur Specific Cable (1.010-1.025) Urine Protein (NEGATIVE) mg/dL Urine Glucose (UA) (NORMAL) mg/dL Urine Ketones (NEGATIVE) mg/dL Urine Occult Blood (NEGATIVE) Urine Nitrite (NEGATIVE) Urine Bilirubin (NEGATIVE) Urine Urobilinogen (NEGATIVE) mg/dL Ur Leukocyte Esterase (NEGATIVE) Urine RBC (0-5) Urine WBC (0-5) Ur Squamous Epith Cells (NS,R,O) Urine Bacteria (NS) 07/20/19 07/20/19 07/21/19 Range/Units 14:05 17:46 06:20 WBC 10.9 (4.5-12.0) X10-3/uL RBC 3.89 (3.23-5.20) x10(6)uL Hgb 12.0 (11.5-15.5) g/dL Hct 37.3 (30.0-51.3) % MCV 95.7 (80-96) fL MCH 30.8 (27.7-33.6) pg MCHC 32.2 (32.2-35.4) g/dL RDW 12.1 (11.5-15.5) % Plt Count 222 (125-369) X10(3)uL MPV 7.8 (7.4-10.4) fL Neut % (Auto) 73.7 (46-82) % Lymph % (Auto) 17.9 (13-37) % [place] % (Auto) 6.5 (4-12) % Eos % (Auto) 2 (1.0-5.0) % Baso % (Auto) 0 (0-2) % Neut # (Auto) 8.0 (1.6-8.3) # Lymph # (Auto) 2.0 (0.6-5.0) # [place] # (Auto) 0.7 (0.0-1.3) # Eos # (Auto) 0.2 (0.0-0.8) # Baso # (Auto) 0.0 (0.0-0.2) # Sodium (135-145) mmol/L Potassium (3.5-5.3) mmol/L Chloride (100-110) mmol/L Carbon Dioxide (21-32) mmol/L BUN (7-18) mg/dL Creatinine (0.55-1.02) mg/dL Est Cr Clr Drug Dosing Estimated GFR (MDRD) (>60) BUN/Creatinine Ratio (9-20) Glucose (80-116) mg/dL POC Glucose 71 L D (80-116) mg/dL Calcium (8.6-10.2) mg/dL Total Bilirubin (0.1-1.3) mg/dL AST (5-25) IU/L ALT (12-36) U/L Alkaline Phosphatase (56-112) IU/L Total Protein (6.0-8.0) g/dL Albumin (2.9-4.5) g/dL Globulin g/dL Albumin/Globulin Ratio Amylase (25-115) U/L Lipase (73-393) U/L Urine Color Yellow (YELLOW) Urine Appearance Clear (CLEAR) Urine pH 5.0 (5.0-6.5) Ur Specific [place] 1.005 L (1.010-1.025) Urine Protein Trace (NEGATIVE) mg/dL Urine Glucose (UA) Normal (NORMAL) mg/dL Urine Ketones Negative (NEGATIVE) mg/dL Urine Occult Blood Trace (NEGATIVE) Urine Nitrite Negative (NEGATIVE) Urine Bilirubin Small H (NEGATIVE) Urine Urobilinogen Normal (NEGATIVE) mg/dL Ur Leukocyte Esterase Small H (NEGATIVE) Urine RBC 0-5 (0-5) Urine WBC 0-5 (0-5) Ur Squamous Epith Cells Many H (NS,R,O) Urine Bacteria Moderate H (NS) 07/21/19 Range/Units 06:20 WBC (4.5-12.0) X10-3/uL RBC (3.23-5.20) x10(6)uL Hgb (11.5-15.5) g/dL Hct (30.0-51.3) % MCV (80-96) fL MCH (27.7-33.6) pg MCHC (32.2-35.4) g/dL RDW (11.5-15.5) % Plt Count (125-369) X10(3)uL MPV (7.4-10.4) fL Neut % (Auto) (46-82) % Lymph % (Auto) (13-37) % [place] % (Auto) (4-12) % Eos % (Auto) (1.0-5.0) % Baso % (Auto) (0-2) % Neut # (Auto) (1.6-8.3) # Lymph # (Auto) (0.6-5.0) # [place] # (Auto) (0.0-1.3) # Eos # (Auto) (0.0-0.8) # Baso # (Auto) (0.0-0.2) # Sodium 141 (135-145) mmol/L Potassium 4.2 (3.5-5.3) mmol/L Chloride 108 D (100-110) mmol/L Carbon Dioxide 22 (21-32) mmol/L BUN 3 L (7-18) mg/dL Creatinine 0.5 L (0.55-1.02) mg/dL Est Cr Clr Drug Dosing 60.33 Estimated GFR (MDRD) > 60 (>60) BUN/Creatinine Ratio 6.0 L (9-20) Glucose 56 L (80-116) mg/dL POC Glucose (80-116) mg/dL Calcium 8.0 L (8.6-10.2) mg/dL Total Bilirubin (0.1-1.3) mg/dL AST (5-25) IU/L ALT (12-36) U/L Alkaline Phosphatase (56-112) IU/L Total Protein (6.0-8.0) g/dL Albumin (2.9-4.5) g/dL Globulin g/dL Albumin/Globulin Ratio Amylase (25-115) U/L Lipase (73-393) U/L Urine Color (YELLOW) Urine Appearance (CLEAR) Urine pH (5.0-6.5) Ur Specific [place] (1.010-1.025) Urine Protein (NEGATIVE) mg/dL Urine Glucose (UA) (NORMAL) mg/dL Urine Ketones (NEGATIVE) mg/dL Urine Occult Blood (NEGATIVE) Urine Nitrite (NEGATIVE) Urine Bilirubin (NEGATIVE) Urine Urobilinogen (NEGATIVE) mg/dL Ur Leukocyte Esterase (NEGATIVE) Urine RBC (0-5) Urine WBC (0-5) Ur Squamous Epith Cells (NS,R,O) Urine Bacteria (NS) Med Orders - Current: Current Medications Sodium Chloride (Normal Saline) 1,000 mls @ 100 mls/hr IV ASDIRECTED JOHNNIE Last Admin: 07/21/19 04:57 Dose: 100 mls/hr Morphine Sulfate (Morphine) 2 mg IVPUSH Q2H PRN PRN Reason: Pain Last Admin: 07/20/19 15:40 Dose: 2 mg Ondansetron HCl (Zofran) 4 mg IVPUSH Q4H PRN PRN Reason: Nausea/Vomiting Last Admin: 07/20/19 15:47 Dose: 4 mg Sodium Chloride (Saline Flush) 10 ml FLUSH ASDIRECTED PRN PRN Reason: Keep Vein Open Discontinued Medications Sodium Chloride (Normal Saline) 1,000 mls @ 999 mls/hr IV ASDIRECTED JOHNNIE Last Admin: 07/20/19 09:38 Dose: 999 mls/hr Sodium Chloride (Normal Saline) 1,000 mls @ 125 mls/hr IV ASDIRECTED JOHNNIE Last Infusion: 07/20/19 18:25 Dose: 100 mls/hr Iopamidol (Isovue-370 (76%)) 100 ml IV . DIRECTED ONE Stop: 07/20/19 09:03 Last Admin: 07/20/19 09:14 Dose: 60 ml Lidocaine HCl (Glydo) Confirm Administered Dose 6 ml .ROUTE .STK-MED ONE Stop: 07/20/19 18:11 Last Admin: 07/20/19 18:15 Dose: 6 ml Morphine Sulfate (Morphine) 2 mg IVPUSH ONETIME ONE Stop: 07/20/19 10:14 Last Admin: 07/20/19 10:32 Dose: 2 mg Ondansetron HCl (Zofran) 4 mg IVPUSH ONETIME ONE Stop: 07/20/19 08:31 Last Admin: 07/20/19 09:43 Dose: 4 mg Ondansetron HCl (Zofran) 4 mg IVPUSH ONETIME ONE Stop: 07/20/19 10:14 Last Admin: 07/20/19 10:31 Dose: 4 mg - Exam General: Alert, Oriented, Cooperative GI/Abdominal Exam: Soft, Non-Tender, Distended Sepsis Event Note - Evaluation Sepsis Screening Result: No Definite Risk - Focused Exam Vital Signs: Vital Signs Temp Pulse Resp BP Pulse Ox 07/21/19 06:58 18 07/21/19 03:00 98.6 F 82 18 138/70 98 07/20/19 23:00 98 F 87 18 145/72 H 94 L Date Exam was Performed: 07/21/19 Time Exam was Performed: 08:14 - Problem List & Annotations (1) SBO (small bowel obstruction) SNOMED Code(s): 786277152 Code(s): K56.609 - UNSP INTESTNL OBST, UNSP TO PARTIAL VERSUS COMPLETE OBST Status: Acute Current Visit: Yes (2) Palliative care status SNOMED Code(s): 253300436 Code(s): Z51.5 - ENCOUNTER FOR PALLIATIVE CARE Status: Acute Current Visit: No - Problem List Review Problem List Initiated/Reviewed/Updated: Yes - My Orders Last 24 Hours: My Active Orders 07/20/19 12:49 Consult to Physician [CONS] Routine 07/20/19 12:55 Patient Status [ADT] Routine 07/20/19 18:11 Sodium Chloride 0.9% [Normal Saline] 1,000 ml IV ASDIRECTED - Plan Plan:: 1. Continue current care. 2. Dr. Pettit to the side whether the patient is managed conservatively for small bowel obstruction or surgically.
--- NOTE | 2019-07-21 10:28 | CR ---
INDICATION: Followup small bowel obstruction. ABDOMEN, TWO VIEWS: Three images of the abdomen in supine and upright projections were obtained 07/21/[address] from 07/20/19, again revealing contrast in the colon with distended air-filled loops of small bowel. An anastomosis is noted at the sigmoid level compatible with a previous sigmoid resection. Clips are noted in the right upper quadrant compatible with cholecystectomy. The amount of distention of small bowel loops appears to be somewhat diminished compared with the previous CT examination. There is noted interval placement of a nasogastric tube with its tip in the gastric fundus. Advance of the nasogastric tube of approximately 10 cm may be warranted for better positioning. IMPRESSION: 1. Advance of nasogastric tube by approximately 10 cm may be helpful for better positioning. 2, Slightly decreased distention of small bowel loops is noted which may be on the basis of slight improvement in the patient or possibly placement of the nasogastric tube with continued contrast noted in the colon including the rectosigmoid area. 3. Post sigmoid resection. 4. Post [facility]olecystectomy. [facility]
--- NOTE | 2019-07-21 14:08 | PCM.PN ---
- General Info Date of Service: 07/21/19 Functional Status: Reports: Pain Controlled - Review of Systems General: Reports: No Symptoms Pulmonary: Reports: No Symptoms Cardiovascular: Reports: No Symptoms Gastrointestinal: Reports: No Symptoms, Other (Large amount of dark NG retuen since last pm). Denies: Flatus Genitourinary: Reports: No Symptoms - Patient Data Vitals - Most Recent: Last Vital Signs Temp 98.6 F 07/21/19 03:00 Pulse 82 07/21/19 03:00 Resp 18 07/21/19 06:58 BP 138/70 07/21/19 03:00 Pulse Ox 98 07/21/19 03:00 Weight - Most Recent: 56.302 kg I&O - Last 24 Hours: Intake & Output 07/20/19 07/21/19 07/21/19 22:59 06:59 14:59 Intake Total 2240 771 Output Total 275 325 Balance 1965 446 Lab Results Last 24 Hours: Laboratory Results - last 24 hr 07/20/19 07/20/19 07/21/19 Range/Units 14:05 17:46 06:20 WBC 10.9 (4.5-12.0) X10-3/uL RBC 3.89 (3.23-5.20) x10(6)uL Hgb 12.0 (11.5-15.5) g/dL Hct 37.3 (30.0-51.3) % MCV 95.7 (80-96) fL MCH 30.8 (27.7-33.6) pg MCHC 32.2 (32.2-35.4) g/dL RDW 12.1 (11.5-15.5) % Plt Count 222 (125-369) X10(3)uL MPV 7.8 (7.4-10.4) fL Neut % (Auto) 73.7 (46-82) % Lymph % (Auto) 17.9 (13-37) % [place] % (Auto) 6.5 (4-12) % Eos % (Auto) 2 (1.0-5.0) % Baso % (Auto) 0 (0-2) % Neut # (Auto) 8.0 (1.6-8.3) # Lymph # (Auto) 2.0 (0.6-5.0) # [place] # (Auto) 0.7 (0.0-1.3) # Eos # (Auto) 0.2 (0.0-0.8) # Baso # (Auto) 0.0 (0.0-0.2) # Sodium (135-145) mmol/L Potassium (3.5-5.3) mmol/L Chloride (100-110) mmol/L Carbon Dioxide (21-32) mmol/L BUN (7-18) mg/dL Creatinine (0.55-1.02) mg/dL Est Cr Clr Drug Dosing mL/min Estimated GFR (MDRD) (>60) BUN/Creatinine Ratio (9-20) Glucose (80-116) mg/dL POC Glucose 71 L D (80-116) mg/dL Calcium (8.6-10.2) mg/dL Urine Color Yellow (YELLOW) Urine Appearance Clear (CLEAR) Urine pH 5.0 (5.0-6.5) Ur Specific [place] 1.005 L (1.010-1.025) Urine Protein Trace (NEGATIVE) mg/dL Urine Glucose (UA) Normal (NORMAL) mg/dL Urine Ketones Negative (NEGATIVE) mg/dL Urine Occult Blood Trace (NEGATIVE) Urine Nitrite Negative (NEGATIVE) Urine Bilirubin Small H (NEGATIVE) Urine Urobilinogen Normal (NEGATIVE) mg/dL Ur Leukocyte Esterase Small H (NEGATIVE) Urine RBC 0-5 (0-5) Urine WBC 0-5 (0-5) Ur Squamous Epith Cells Many H (NS,R,O) Urine Bacteria Moderate H (NS) 07/21/19 Range/Units 06:20 WBC (4.5-12.0) X10-3/uL RBC (3.23-5.20) x10(6)uL Hgb (11.5-15.5) g/dL Hct (30.0-51.3) % MCV (80-96) fL MCH (27.7-33.6) pg MCHC (32.2-35.4) g/dL RDW (11.5-15.5) % Plt Count (125-369) X10(3)uL MPV (7.4-10.4) fL Neut % (Auto) (46-82) % Lymph % (Auto) (13-37) % [place] % (Auto) (4-12) % Eos % (Auto) (1.0-5.0) % Baso % (Auto) (0-2) % Neut # (Auto) (1.6-8.3) # Lymph # (Auto) (0.6-5.0) # [place] # (Auto) (0.0-1.3) # Eos # (Auto) (0.0-0.8) # Baso # (Auto) (0.0-0.2) # Sodium 141 (135-145) mmol/L Potassium 4.2 (3.5-5.3) mmol/L Chloride 108 D (100-110) mmol/L Carbon Dioxide 22 (21-32) mmol/L BUN 3 L (7-18) mg/dL Creatinine 0.5 L (0.55-1.02) mg/dL Est Cr Clr Drug Dosing 60.33 mL/min Estimated GFR (MDRD) > 60 (>60) BUN/Creatinine Ratio 6.0 L (9-20) Glucose 56 L (80-116) mg/dL POC Glucose (80-116) mg/dL Calcium 8.0 L (8.6-10.2) mg/dL Urine Color (YELLOW) Urine Appearance (CLEAR) Urine pH (5.0-6.5) Ur Specific [place] (1.010-1.025) Urine Protein (NEGATIVE) mg/dL Urine Glucose (UA) (NORMAL) mg/dL Urine Ketones (NEGATIVE) mg/dL Urine Occult Blood (NEGATIVE) Urine Nitrite (NEGATIVE) Urine Bilirubin (NEGATIVE) Urine Urobilinogen (NEGATIVE) mg/dL Ur Leukocyte Esterase (NEGATIVE) Urine RBC (0-5) Urine WBC (0-5) Ur Squamous Epith Cells (NS,R,O) Urine Bacteria (NS) Med Orders - Current: Current Medications Sodium Chloride (Normal Saline) 1,000 mls @ 100 mls/hr IV ASDIRECTED JOHNNIE Last Admin: 07/21/19 04:57 Dose: 100 mls/hr Morphine Sulfate (Morphine) 2 mg IVPUSH Q2H PRN PRN Reason: Pain Last Admin: 07/20/19 15:40 Dose: 2 mg Ondansetron HCl (Zofran) 4 mg IVPUSH Q4H PRN PRN Reason: Nausea/Vomiting Last Admin: 07/20/19 15:47 Dose: 4 mg Sodium Chloride (Saline Flush) 10 ml FLUSH ASDIRECTED PRN PRN Reason: Keep Vein Open Discontinued Medications Sodium Chloride (Normal Saline) 1,000 mls @ 999 mls/hr IV ASDIRECTED [facility] Last Admin: 07/20/19 09:38 Dose: 999 mls/hr Sodium Chloride (Normal Saline) 1,000 mls @ 125 mls/hr IV ASDIRECTED [facility] Last Infusion: 07/20/19 18:25 Dose: 100 mls/hr Iopamidol (Isovue-370 (76%)) 100 ml IV . DIRECTED ONE Stop: 07/20/19 09:03 Last Admin: 07/20/19 09:14 Dose: 60 ml Lidocaine HCl (Glydo) Confirm Administered Dose 6 ml .ROUTE .STK-MED ONE Stop: 07/20/19 18:11 Last Admin: 07/20/19 18:15 Dose: 6 ml Morphine Sulfate (Morphine) 2 mg IVPUSH ONETIME ONE Stop: 07/20/19 10:14 Last Admin: 07/20/19 10:32 Dose: 2 mg Ondansetron HCl (Zofran) 4 mg IVPUSH ONETIME ONE Stop: 07/20/19 08:31 Last Admin: 07/20/19 09:43 Dose: 4 mg Ondansetron HCl (Zofran) 4 mg IVPUSH ONETIME ONE Stop: 07/20/19 10:14 Last Admin: 07/20/19 10:31 Dose: 4 mg - Exam General: Alert, Oriented GI/Abdominal Exam: Soft, Non-Tender, Distended, Hernia (reducible) Sepsis Event Note - Evaluation Sepsis Screening Result: No Definite Risk - Focused Exam Vital Signs: Vital Signs Temp Pulse Resp BP Pulse Ox 07/21/19 06:58 18 07/21/19 03:00 98.6 F 82 18 138/70 98 Date Exam was Performed: 07/21/19 Time Exam was Performed: 14:04 - Problem List Review Problem List Initiated/Reviewed/Updated: Yes - Assessment Assessment:: SBO, no flatus or BM AXR show less dilation, NG needs to be advanced 5 cm - Plan Plan:: 1. Continue current care. 2. Dr. Pettit to the side whether the patient is managed conservatively for small bowel obstruction or surgically. Will transfer to [facility] for probable surgery, Spoke with Dr Wright
--- NOTE | 2019-07-21 16:55 | PCM.DCSUM1 ---
Discharge Summary - Hospital Course Free Text/Narrative:: Hospital course-she was admitted and placed on nothing by mouth given morphine for pain and Zofran for nausea or vomiting. She was seen by Dr. Pettit surgeon but NG tube down which helped greatly. The next day she had a lot of output her abdomen was still distended but felt much better. Dr. Pettit felt because of her age she needed operation of be better done essentially there is more specialist. So we'll transfer to [facility]. After Kyle perkins. Brief History: This is an 89-year-old female patient that went home less than a week ago after pancreatitis and possible small bowel obstruction. She was able to tolerate fluids, full diet and she was passing her bowels. Went home back to [facility] and after each meal she was vomiting. Last night her pain became worse in the epigastrium and she had bloating per she says she did have a BM today. She denies fevers, chills, dysuria, pyuria, hematuria. She is incontinent. Diagnosis: Stroke: No - Discharge Data Discharge Date: 07/21/19 Discharge Disposition: DC/Tfer to Acute Hospital 02 Condition: Good - Referral to Home Health Primary Care Physician: Young Black MD - Discharge Diagnosis/Problem(s) (1) SBO (small bowel obstruction) SNOMED Code(s): 854471161 ICD Code: K56.609 - UNSP INTESTNL OBST, UNSP TO PARTIAL VERSUS COMPLETE OBST Status: Acute Current Visit: Yes (2) Palliative care status SNOMED Code(s): 160334152 ICD Code: Z51.5 - ENCOUNTER FOR PALLIATIVE CARE Status: Acute Current Visit: No - Patient Summary/Data Consults: Consultations 07/20/19 12:49 Consult to Physician [CONS] Routine Consulting Provider: Nikita Pettit Courtesy Call Completed to Consulting Physician: Yes - Patient Instructions Diet: NPO Activity: Bedrest Driving: Do Not Drive Other/Special Instructions: 1. Transfer to [facility] by ambulance Dr. Kyle perkins - Discharge Plan Home Medications: Home Meds Glimepiride [Amaryl] 4 mg PO WITHBREAKFAST 08/21/15 [History] Levothyroxine [Synthroid] 50 mcg PO ACBREAKFAST 08/21/15 [History] amLODIPine Besylate [Norvasc] 2.5 mg PO DAILY 08/21/15 [History] atorvaSTATin [Lipitor] 20 mg PO BEDTIME 08/21/15 [History] Cyanocobalamin (Vitamin B-12) [Vitamin B-12] 1,000 mcg PO DAILY 07/14/19 [ History] metFORMIN HCl [Metformin HCl] 500 mg PO BIDMEALS 07/14/19 [History] Forms: ED Department Discharge Referrals: Young Black MD [Primary Care Provider] - - Discharge Summary/Plan Comment DC Time >30 min.: No - Patient Data Vitals - Most Recent: Last Vital Signs Temp 98.6 F 07/21/19 03:00 Pulse 82 07/21/19 03:00 Resp 18 07/21/19 06:58 BP 138/70 07/21/19 03:00 Pulse Ox 98 07/21/19 03:00 Weight - Most Recent: 124 lb 2 oz I&O - Last 24 hours: Intake & Output 07/21/19 07/21/19 07/21/19 06:59 14:59 22:59 Intake Total 771 Output Total 325 Balance 446 Lab Results - Last 24 hrs: Laboratory Results - last 24 hr 07/20/19 07/21/19 07/21/19 Range/Units 17:46 06:20 06:20 WBC 10.9 (4.5-12.0) X10-3/uL RBC 3.89 (3.23-5.20) x10(6)uL Hgb 12.0 (11.5-15.5) g/dL Hct 37.3 (30.0-51.3) % MCV 95.7 (80-96) fL MCH 30.8 (27.7-33.6) pg MCHC 32.2 (32.2-35.4) g/dL RDW 12.1 (11.5-15.5) % Plt Count 222 (125-369) X10(3)uL MPV 7.8 (7.4-10.4) fL Neut % (Auto) 73.7 (46-82) % Lymph % (Auto) 17.9 (13-37) % [place] % (Auto) 6.5 (4-12) % Eos % (Auto) 2 (1.0-5.0) % Baso % (Auto) 0 (0-2) % Neut # (Auto) 8.0 (1.6-8.3) # Lymph # (Auto) 2.0 (0.6-5.0) # [facility] # (Auto) 0.7 (0.0-1.3) # Eos # (Auto) 0.2 (0.0-0.8) # Baso # (Auto) 0.0 (0.0-0.2) # Sodium 141 (135-145) mmol/L Potassium 4.2 (3.5-5.3) mmol/L Chloride 108 D (100-110) mmol/L Carbon Dioxide 22 (21-32) mmol/L BUN 3 L (7-18) mg/dL Creatinine 0.5 L (0.55-1.02) mg/dL Est Cr Clr Drug Dosing 60.33 mL/min Estimated GFR (MDRD) > 60 (>60) BUN/Creatinine Ratio 6.0 L (9-20) Glucose 56 L (80-116) mg/dL POC Glucose 71 L D (80-116) mg/dL Calcium 8.0 L (8.6-10.2) mg/dL Med Orders - Current: Current Medications Sodium Chloride (Normal Saline) 1,000 mls @ 100 mls/hr IV ASDIRECTED [facility] Last Admin: 07/21/19 15:02 Dose: 100 mls/hr Morphine Sulfate (Morphine) 2 mg IVPUSH Q2H PRN PRN Reason: Pain Last Admin: 07/20/19 15:40 Dose: 2 mg Ondansetron HCl (Zofran) 4 mg IVPUSH Q4H PRN PRN Reason: Nausea/Vomiting Last Admin: 07/20/19 15:47 Dose: 4 mg Sodium Chloride (Saline Flush) 10 ml FLUSH ASDIRECTED PRN PRN Reason: Keep Vein Open Discontinued Medications Sodium Chloride (Normal Saline) 1,000 mls @ 999 mls/hr IV ASDIRECTED JOHNNIE Last Admin: 07/20/19 09:38 Dose: 999 mls/hr Sodium Chloride (Normal Saline) 1,000 mls @ 125 mls/hr IV ASDIRECTED JOHNNIE Last Infusion: 07/20/19 18:25 Dose: 100 mls/hr Iopamidol (Isovue-370 (76%)) 100 ml IV . DIRECTED ONE Stop: 07/20/19 09:03 Last Admin: 07/20/19 09:14 Dose: 60 ml Lidocaine HCl (Glydo) Confirm Administered Dose 6 ml .ROUTE .STK-MED ONE Stop: 07/20/19 18:11 Last Admin: 07/20/19 18:15 Dose: 6 ml Morphine Sulfate (Morphine) 2 mg IVPUSH ONETIME ONE Stop: 07/20/19 10:14 Last Admin: 07/20/19 10:32 Dose: 2 mg Ondansetron HCl (Zofran) 4 mg IVPUSH ONETIME ONE Stop: 07/20/19 08:31 Last Admin: 07/20/19 09:43 Dose: 4 mg Ondansetron HCl (Zofran) 4 mg IVPUSH ONETIME ONE Stop: 07/20/19 10:14 Last Admin: 07/20/19 10:31 Dose: 4 mg
[2019-07-21 18:08] VITALS: BP 138/75; PULSE 90
== END 2019-07-21 15:10 | DRG 390 ==
LOC: FB.ED 08:21 → FB.MS 10:40 → OBSVTOIN 12:55
PROVIDERS: ADMIT Emergency Medicine; ATTEND Family Medicine
DX: K56.609 Unspecified intestinal obstruction, unspecified as to partial versus complete obstruction (principal); Z51.5 Encounter for palliative care; H54.7 Unspecified visual loss; E78.00 Pure hypercholesterolemia, unspecified; I10 Essential (primary) hypertension; K58.9 Irritable bowel syndrome, unspecified; R32 Unspecified urinary incontinence; M19.90 Unspecified osteoarthritis, unspecified site; E11.9 Type 2 diabetes mellitus without complications; K43.9 Ventral hernia without obstruction or gangrene; Z85.038 Personal history of other malignant neoplasm of large intestine; Z79.84 Long term (current) use of oral hypoglycemic drugs; Z96.641 Presence of right artificial hip joint; Z79.899 Other long term (current) drug therapy; Z88.8 Allergy status to other drugs, medicaments and biological substances; Z88.1 Allergy status to other antibiotic agents; Z79.890 Hormone replacement therapy; Z98.49 Cataract extraction status, unspecified eye; Z90.89 Acquired absence of other organs; Z90.49 Acquired absence of other specified parts of digestive tract; Z90.710 Acquired absence of both cervix and uterus
CPT/HCPCS: 36415; 74177; 80053; 82150; 83690; 85025; J2270; J2405 ×2; J7030 ×2; Q9967; 74019; 80048; 81001; 82962; 96361; 96374; 96375; 96376; 99284; 99285-25; A9270-GY